=== PATIENT | female | born 1945 | race Caucasian/White ===

== ENCOUNTER 2024-05-11 17:29 | Inpatient (IN) | payer MEDICARE, SELFPAY ==
--- NOTE | ~2024-05-11 | CT_ITS ---
EXAMINATION: CT ABDOMEN AND PELVIS WITH CONTRAST CLINICAL INFORMATION: Bacteremia with hepatic abscess COMPARISON: None TECHNIQUE: Multidetector volumetric imaging was performed from the superior aspect of the liver through the pubic symphysis with intravenous contrast. A total of 85 mL of Omnipaque 350 was utilized for the study. Sagittal and coronal reformatted images were obtained on the technologist's workstation. This CT examination was performed using dose optimization techniques as appropriate, variously including the following: *Automated exposure control *Adjustment of mA and/or kV according to patient size (this includes techniques or standardized protocols for targeted exams where dose is matched to indication/reason for exam; i.e. extremities or head) *Use of iterative reconstruction technique DLP: 628 mGy-cm FINDINGS: LUNG BASES: There is mild cardiomegaly. Mitral valve prosthesis is present. There is bibasilar atelectasis present along with bronchial thickening and traction bronchiectasis at both lung bases, right greater than left . LIVER, GALLBLADDER, AND BILIARY TREE: The liver is enlarged measuring 17.6 cm in greatest cephalocaudad dimension. A few hepatic hypodensities are seen the largest in the left lobe of the liver measuring 1.4 cm. This does not measure water density. No biliary ductal dilatation is present. Status post cholecystectomy. PANCREAS: Unremarkable. SPLEEN: Unremarkable. ADRENAL GLANDS: Unremarkable. KIDNEYS AND URETERS: The kidneys are normal in size, shape, and attenuation. No hydronephrosis, hydroureter, or calculi seen. No perinephric stranding. A benign left upper pole cm Bosniak class I renal cyst is noted which requires no additional imaging or follow up. No solid renal masses are seen. BLADDER: Air is present within the bladder. GASTROINTESTINAL TRACT: There is sigmoid diverticulosis without diverticulitis The small and large bowel are unremarkable. The appendix is unremarkable. ABDOMINAL WALL: No significant hernia is appreciated. LYMPH NODES: No retroperitoneal lymphadenopathy VASCULAR: Calcific atherosclerotic changes are present in the aorta and iliofemoral vessels. There is no evidence of an abdominal aortic aneurysm. PELVIC VISCERA: Retroflexed uterus is present. The endometrium is thickened at 1.4 cm in length and there is a submucosal mass present measuring 0.8 cm. OSSEOUS STRUCTURES: Degenerative changes are present in the spine most marked at L4-L5 CT/CT abdomen pelvis w IV con IMPRESSION: 1. A cause for the patient's bacteremia has not been found. 2. Incidental note made of cardiomegaly, bronchial thickening and traction bronchiectasis at the lung bases, hepatomegaly with a few hepatic hypodensities, cholecystectomy, sigmoid diverticulosis without diverticulitis and a thickened endometrium with submucosal mass. Transabdominal and endovaginal ultrasound is recommended for further evaluation. Fleischner guidelines were followed. Electronically signed by: Darci Galvez MD 05/12/2024 12:46 AM [facility]
--- NOTE | ~2024-05-11 | XR_ITS ---
EXAMINATION: XR CHEST CLINICAL INFORMATION: bacteremia COMPARISON: None available. TECHNIQUE: Frontal view of the chest was obtained. FINDINGS: There is mild cardiomegaly. A TAVR is seen. Some mild interstitial prominence is seen with some mild reticular nodular prominence in the right upper lobe. No focal consolidations. No pleural effusions. XR/XR chest 1V IMPRESSION: Mild cardiomegaly. Mild interstitial prominence with some mild reticular nodular prominence in the right upper lobe. Electronically signed by: Darci Galvez MD 05/12/2024 12:31 AM [facility]
[2024-05-11 18:31] VITALS: BP 119/70; BP 146/88; PULSE 111; PULSE 114; RESP 16; TEMP 36.6; O2SAT 95; O2SAT 96; BMI 24.6
[2024-05-11 19:23] VITALS: BP 128/63; PULSE 89; RESP 18; TEMP 36.9; O2SAT 95
[2024-05-11 19:32] LABS: MANUAL DIFF FLAG NO
[2024-05-11 19:34] LABS: Basophils Absolute Auto 0.1 X10*3/uL (0.0-0.2); Basophils Percent Auto 1.1 % (0-2); Eosinophils Absolute Auto 0.7 X10*3/uL (0.0-0.4); Eosinophils Percent Auto 5.7 % (0-4); Hematocrit 38.7 % (37.0-47.0); Hemoglobin 12.5 g/dl (12.0-16.0); Imm Gran Abs Auto 0.05 X10*3/uL (0.00-0.03); Imm Gran Pct Auto 0.4 % (0.0-0.4); Lymphocytes Percent Auto 16.7 % (20-40); Mean Corpuscular HGB Conc 32.3 g/dl (31.0-35.0); Mean Corpuscular Hemoglobin 29.9 pg (27.0-33.0); Mean Corpuscular Volume 92.6 fL (80.0-98.0); Mean Platelet Volume 10.2 fL (9.4-12.3); Monocytes Absolute Auto 1.2 X10*3/uL (0.1-1.2); Monocytes Percent Auto 9.8 % (2-11); Neutrophils Absolute Auto 7.8 x10*3/uL (2.0-8.3); Neutrophils Percent Auto 66.3 % (45-73); Platelet Count 260 X10*3/uL (160-400); Red Blood Count 4.18 X10*6/uL (4.20-5.50); Red Cell Distribution Width 16.8 % (11.0-16.0); White Blood Count 11.8 X10*3/uL (4.8-10.8)
[2024-05-11 19:50] LABS: Alanine Aminotransferase 34 U/L (0-31); Albumin Level 3.1 g/dL (3.5-5.0); Alkaline Phosphatase 487 U/L (39-117); Anion Gap 13 (12-20); Aspartate Amino Transferase 37 U/L (5-31); Blood Urea Nitrogen 9 mg/dL (9-16); Calcium 9.2 mg/dL (8.4-10.2); Carbon Dioxide 23 mmol/L (22-29); Chloride 106 mmol/L (96-108); Creatinine Clr Calc Pharmacy 56.4; Estimated Glomerular Filt Rate > 60; Glucose Random 87 mg/dL (60-115); Sodium 137 mmol/L (135-145); Total Protein 7.8 g/dL (6.5-8.0)
--- NOTE | 2024-05-11 20:42 | PC.NURSE ---
late entry- pt a&ox4, respirations even and unlabored.pt nadir from [facility], reporting she had labs drawn and they told her she had a possible infection. on arrival pt denies any complaints. 22G placed in right ac, labs obtained and sent.
--- NOTE | 2024-05-11 21:24 | ED_ITS ---
HPI - Recheck/Abnormal Lab/Rx General Chief Complaint: Recheck/Abnormal Lab/Rx Stated Complaint: ABN LABS + CULTURES WBC PER EMS Time Seen by Provider: 05/11/24 21:18 Source: patient and family Mode of arrival: EMS Limitations: no limitations History of Present Illness ED Provider: HPI narrative: Patient's history of recurrent sepsis on Augmentin for liver abscess which was stopped on 05/09 and started on cephalexin yesterday for positive Gram-negative blood culture. In elevated WBC count of 14.9 preliminary blood culture showed Klebsiella pneumoniae group Patient is otherwise feels fine no abdominal pain no nausea no vomiting no fever no chills no urinary complaints Related Data Allergies Allergy/AdvReac Type Severity Reaction Status Date / Time No Known Allergies Allergy Verified 05/11/24 18:35 Review of Systems 2 Review of Systems: Yes all other systems are reviewed and are negative [facility] Past Medical History Medical History (Updated 05/12/24 @ 07:22 by Silvio Do MD) HLD (hyperlipidemia) History of transcatheter aortic valve replacement (TAVR) Dementia HTN (hypertension) CHF (congestive heart failure) COPD (chronic obstructive pulmonary disease) Gram-negative bacteremia Cholecystitis with perforation of gallbladder Liver abscess Atrial fibrillation Surgical History (Updated 05/12/24 @ 01:26 by Janna Rao PA-C) Hx laparoscopic cholecystectomy Social History Social History Patient Tobacco Use Status: Never used Tobacco Smoked in Last 30 Days: No Use of substances other than those prescribed or required for medical reasons: No Advance Directives: Yes Advance Directives on File: Yes Advance Directives Date on File: 05/11/24 Do you have a plan to hurt others: No Plan Nutrition Risks: No Nutritional Risk Physical Exam 2 Vital Signs: Vital Signs: Last Vital Signs Temp 97.9 F 05/12/24 05:17 Pulse 102 H 05/12/24 05:17 Resp 23 H 05/12/24 05:17 BP 137/71 05/12/24 05:17 Pulse Ox 95 05/12/24 05:17 O2 Del Method Room Air 05/12/24 05:17 BMI result Body Mass Index 24.6 Appearance: Alert. Oriented X3. No acute distress. Eyes: No pallor or icterus ENT: Pharynx normal. Oral Mucosa moist Neck: Normal inspection. Neck supple. CVS: Normal heart rate and rhythm. Pulses normal. Respiratory: No respiratory distress. Equal air entry bilateral, no wheezing/rales/rhonchi Abdomen: Soft and nontender. Bowel sounds are present, no mass palpable, no CVA tenderness Skin: Skin warm and dry. Normal skin color. Normal skin turgor. Extremities: No lower extremity edema. No calf tenderness Neuro: Oriented X 3. No motor deficit. No sensory deficit.No cerebellar signs , cranial nerves II-XII intact Medications Administered Discontinued Medications Generic Name Dose Route Start Last Admin Trade Name Freq PRN Reason Stop Dose Admin Ceftriaxone Sodium 2 gm 05/11/24 21:25 05/11/24 22:12 Ceftriaxone Sodium 2 Gm Vial IVPUSH 05/11/24 21:26 2 gm ONCE ONE Administration Iohexol 85 ml 05/12/24 00:28 05/12/24 00:28 Iohexol 350 Mg/Ml 100 Ml Infus..Btl IV 05/12/24 00:29 85 ml ONCE ONE Administration Medical Decision Making Medical Decision Making [facility] Narrative: Patient's Gram-negative bacteremia source not clear possible UTI CT scan of the abdomen negative for acute fluid collection or abscess will start on IV Rocephin Differential Diagnosis Differential Diagnoses: The differential diagnosis associated with the presentation includes Admission/Observation Consideration of admission/observation: Escalation of care including admission/observation considered Consult Healthcare Provider Management of the patient was discussed with: Hospitalist Lab Data [facility] Lab Attestation statement: I reviewed the patient's lab results. 05/12/24 06:30 05/12/24 05:50 Labs: Lab Results 05/11/24 05/11/24 Range/Units 19:28 21:42 WBC 11.8 H (4.8-10.8) X10*3/uL RBC 4.18 L (4.20-5.50) X10*6/uL Hgb 12.5 (12.0-16.0) g/dl Hct 38.7 (37.0-47.0) % MCV 92.6 (80.0-98.0) fL MCH 29.9 (27.0-33.0) pg MCHC 32.3 (31.0-35.0) g/dl RDW 16.8 H (11.0-16.0) % Plt Count 260 (160-400) X10*3/uL MPV 10.2 (9.4-12.3) fL Immature Gran % (Auto) 0.4 (0.0-0.4) % Neut % (Auto) 66.3 (45-73) % Lymph % (Auto) 16.7 L (20-40) % Jenkins % (Auto) 9.8 (2-11) % Eos % (Auto) 5.7 H (0-4) % Baso % (Auto) 1.1 (0-2) % Lymph # (Auto) 2.0 (1.2-4.9) X10*3/uL Jenkins # (Auto) 1.2 (0.1-1.2) X10*3/uL Eos # (Auto) 0.7 H (0.0-0.4) X10*3/uL Baso # (Auto) 0.1 (0.0-0.2) X10*3/uL Abs Immat Gran (auto) 0.05 H (0.00-0.03) X10*3/uL Absolute Neuts (auto) 7.8 (2.0-8.3) x10*3/uL Absolute Nucleated RBC 0.000 (0.0-0.012) X10*3/uL Nucleated RBC % (auto) 0.0 (0.0-0.2) /100WBC Sodium 137 (135-145) mmol/L Potassium 5.0 (3.3-5.1) mmol/L Chloride 106 (96-108) mmol/L Carbon Dioxide 23 (22-29) mmol/L Anion Gap 13 (12-20) BUN 9 (9-16) mg/dL Creatinine 0.72 (0.5-1.4) mg/dL Estim Creat Clear Calc 56.4 Estimated GFR > 60 Random Glucose 87 (60-115) mg/dL Lactic Acid 1.0 (0.5-2.0) mmol/L Calcium 9.2 (8.4-10.2) mg/dL Total Bilirubin 1.0 (0.0-1.0) mg/dL AST 37 H (5-31) U/L ALT 34 H (0-31) U/L Alkaline Phosphatase 487 H (39-117) U/L Total Protein 7.8 (6.5-8.0) g/dL Albumin 3.1 L (3.5-5.0) g/dL Independent Interpretation I performed an independent interpretation of an: CT Scan Radiology Impression Discussion of test interpretation with radiology: I have reviewed the radiologist's reading. Radiologist Impression: CT/CT abdomen pelvis w IV con IMPRESSION: 1. A cause for the patient's bacteremia has not been found. 2. Incidental note made of cardiomegaly, bronchial thickening and traction bronchiectasis at the lung bases, hepatomegaly with a few hepatic hypodensities, cholecystectomy, sigmoid diverticulosis without diverticulitis and a thickened endometrium with submucosal mass. Transabdominal and endovaginal ultrasound is recommended for further evaluation. Fleischner guidelines were followed. Electronically signed by: Darci Galvez MD 05/12/2024 12:46 AM [facility] External Record Review External record reviewed: Inpatient record and Outpatient record Discharge Plan Discharge Clinical Impression: Bacteremia Patient Disposition: Admitted As Inpatient
[2024-05-11] MEDS: cefTRIAXone sodium 2 GM VIAL IVPUSH (22:12)
[2024-05-12] VITALS (7 sets, daily range): BP systolic 118–155; BP diastolic 64–90; PULSE 100–119; RESP 18–23; TEMP 36.4–37; O2SAT 94–99; BMI 24.1
[2024-05-12] MEDS: iohexoL 350 MG/ML 100 ML INFUS..BTL 85 ML IV (00:28)
--- NOTE | 2024-05-12 01:06 | PC.NURSE ---
pt straight cath per order at this time, 500cc dark derik urine voided at this time, pt tolerated well, sample obtained.
--- NOTE | 2024-05-12 01:15 | P.HPHOSP_ITS ---
History of Present Illness Date of Service: 05/12/24 Attending physician on admission: Harry Shane Chief Complaint: abnormal labs Patient is a 78-year-old female with a medical history significant for paroxysmal AFib on Coumadin, hypertension, COPD s/p TAVR 2021, CHF, dementia, HLD, who presented to the ED by EMS due to abnormal labs including a positive blood culture, Klebsiella pneumoniae, at [facility]. Reason for the blood work is unclear. She did have 2 recent admissions at [facility], 1st 04/16/2024 for perforated gallbladder, s/p laparoscopic cholecystectomy, followed by a readmission postop liver abscess on 04/26/24. CT A/P from [facility] at that time revealed 2 small possible abscesses in the inferior right lobe of the liver. Interventional Radiology was unable to drain the fluid collection and she was started on IV Zosyn. On 05/05/2024 the patient was deemed hemodynamically and neurologically stable to be discharged and was sent home with Augmentin for 5 days. The patient has been asymptomatic without any abdominal pain, headache, fever, chills, nausea, vomiting, shortness of breath or chest pain. She also denies any urinary symptoms including dysuria, frequency or new incontinence. The patient is a poor historian per her daughter as she has a new diagnosis of severe dementia. Review of Systems 2 Constitutional: Constitutional: Denies body ache(s), Denies chills, Denies fatigue, Denies fever(s) and Denies headache(s) Eyes: Eyes: Denies change in vision ENT: Denies headache(s), Denies nasal congestion, Denies nasal discharge and Denies sore throat Cardiovascular: Cardiovascular: Denies chest pain, Denies rapid heart rate, Denies lightheadedness and Denies dyspnea Respiratory: Respiratory: Denies chest congestion, Denies cough, Denies dyspnea and Denies wheezing Gastrointestinal: Gastrointestinal: Denies diarrhea, Denies nausea and Denies vomiting Genitourinary: Genitourinary: Denies dysuria, Denies urinary incontinence and Denies urinary urgency Musculoskeletal: Musculoskeletal: Denies muscle cramps Integumentary/Breasts: Skin/Breast: Denies rash Neurologic: Denies headache(s) and Denies memory loss Psychiatric: Psychiatric: Denies memory loss Endocrine: Endocrine: Denies fatigue Hematologic/Lymphatic: Hematologic/Lymphatic: Denies easy bleeding Allergic/Immunologic: Allergic/Immunologic: Denies wheezing PMFSH Medical History (Updated 05/12/24 @ 01:28 by Janna Rao PA-C) HLD (hyperlipidemia) History of transcatheter aortic valve replacement (TAVR) Dementia HTN (hypertension) CHF (congestive heart failure) COPD (chronic obstructive pulmonary disease) Gram-negative bacteremia Cholecystitis with perforation of gallbladder Liver abscess Atrial fibrillation Surgical History (Updated 05/12/24 @ 01:26 by Janna Rao PA-C) Hx laparoscopic cholecystectomy Social History Smoked in Last 30 Days: No Use of substances other than those prescribed or required for medical reasons: No Advance Directives: Yes Advance Directives on File: Yes Advance Directives Date on File: 05/11/24 Do you have a plan to hurt others: No Plan Narrative: no smoking, etoh or drug use. living at [facility] but states she was going to be placed somewhere else Meds Allergies Allergy/AdvReac Type Severity Reaction Status Date / Time No Known Allergies Allergy Verified 05/11/24 18:35 Active Medications: Current Medications Acetaminophen (Acetaminophen 325 Mg Tablet) 650 mg PO Q6H PRN PRN Reason: Pain, Mild (Pain Scale 1-3), fever or headache Calcium Carbonate (Calcium Carbonate 750 Mg Tab.Chew) 750 mg PO Q4H PRN PRN Reason: Heartburn Magnesium Hydroxide (Milk Of Magnesia 30 Ml Oral.Susp) 30 ml PO DAILY PRN PRN Reason: Constipation Melatonin (Melatonin 3 Mg Tablet) 6 mg PO BEDTIME PRN PRN Reason: Insomnia Ondansetron HCl (Ondansetron Hcl 4 Mg/2 Ml Vial) 4 mg IVPUSH Q8H PRN PRN Reason: Nausea and Vomiting Sodium Chloride (0.9 % Sodium Chloride Flush 3 Ml Syringe) 3 ml IVFLUSH QSHIFT [facility] Physical Exam 2 Vital Signs and Narrative: Vital Signs: Last Vital Signs Temp 98.4 F 05/11/24 19:23 Pulse 89 05/11/24 19:23 Resp 18 05/11/24 19:23 BP 128/63 05/11/24 19:23 Pulse Ox 95 05/11/24 19:23 O2 Del Method Room Air 05/11/24 19:23 BMI result Body Mass Index 24.6 General: AOx3, no acute distress, some confusion, difficult historian Resp: CTA bilaterally CVS: S1, S2, RRR GI: +BS, NT, no distention Skin: Warm, dry. chronic venous stasis Neuro: Cranial nerves II-XII grossly intact bilaterally. Motor grossly intact bilaterally Extremities: No LE edema Psych: Appropriate affect, some confusion Results Labs 05/11/24 19:28 05/11/24 19:28 Labs: Laboratory Results - last 24 hr 05/11/24 05/11/24 19:28 21:42 MCV 92.6 MCH 29.9 MCHC 32.3 RDW 16.8 H Plt Count 260 MPV 10.2 Immature Gran % (Auto) 0.4 Neut % (Auto) 66.3 Lymph % (Auto) 16.7 L [place] % (Auto) 9.8 Eos % (Auto) 5.7 H Baso % (Auto) 1.1 Lymph # (Auto) 2.0 [place] # (Auto) 1.2 Eos # (Auto) 0.7 H Baso # (Auto) 0.1 Abs Immat Gran (auto) 0.05 H Absolute Neuts (auto) 7.8 Absolute Nucleated RBC 0.000 Nucleated RBC % (auto) 0.0 Anion Gap 13 Estim Creat Clear Calc 56.4 Estimated GFR > 60 Random Glucose 87 Lactic Acid 1.0 Calcium 9.2 Total Bilirubin 1.0 AST 37 H ALT 34 H Alkaline Phosphatase 487 H Total Protein 7.8 Albumin 3.1 L Imaging Radiologist's Impressions: Impressions Abdomen/Pelvis CT 05/12/24 00:04 IMPRESSION: 1. A cause for the patient's bacteremia has not been found. 2. Incidental note made of cardiomegaly, bronchial thickening and traction bronchiectasis at the lung bases, hepatomegaly with a few hepatic hypodensities, cholecystectomy, sigmoid diverticulosis without diverticulitis and a thickened endometrium with submucosal mass. Transabdominal and endovaginal ultrasound is recommended for further evaluation. Fleischner guidelines were followed. Electronically signed by: Darci Galvez MD 05/12/2024 12:46 AM [facility] Chest X-Ray 05/12/24 00:14 IMPRESSION: Mild cardiomegaly. Mild interstitial prominence with some mild reticular nodular prominence in the right upper lobe. Electronically signed by: Darci Galvez MD 05/12/2024 12:31 AM [facility] Assessment and Plan (1) Sepsis: Status: Acute (2) Bacteremia: Status: Acute (3) UTI (urinary tract infection): Status: Acute Plan Patient is a 78-year-old female with a medical history significant for paroxysmal AFib on Coumadin, hypertension, COPD s/p TAVR 2021, CHF, dementia, HLD, who presented to the ED by EMS due to abnormal labs including a positive blood culture, Klebsiella pneumoniae, at [facility]. Reason for the blood work is unclear. She did have 2 recent admissions at [facility], 1st 04/16/2024 for perforated gallbladder, s/p laparoscopic cholecystectomy, followed by a readmission postop liver abscess on 04/26/24. CT A/P from [facility] at that time revealed 2 small possible abscesses in the inferior right lobe of the liver. Interventional Radiology was unable to drain the fluid collection and she was started on IV Zosyn. On 05/05/2024 the patient was deemed hemodynamically and neurologically stable to be discharged and was sent home with Augmentin for 5 days. Blood cultures x2 at [facility] were negative. sepsis with klebsiella pneumoniae bacteremia likely secondary to UTI - A/P CT negative for source of bacteremia - CXR negative - UA +, culture pending - CBC with mild leukocytosis 11.8, pt tachy on arrival, no fever, lactic acid normal, blood cultures x2 pending - given 1 dose ceftriaxone in ED, will continue - puree diet per records, thin liquids ok - monitor CBC and CMP elevated LFTs due to above hx - stable LFTs from [facility] records - no liver abscess on CT - monitor CMP paroxysmal a fib - PT/INR pending, check daily - continue coumadin, metoprolol and digoxin HTN - continue metoprolol, HTN CHF - continue lasix HLD - hold statin with elevated LFTs DNR/DNI - reviewed with pt's HCP [facility] VTE prophy: coumadin Pt with sepsis with Klebsiella pneumonia bacteremia likely secondary to UTI, requiring admission for at least 2 midnights stay for IV antibiotics. Quality Stroke Does the patient have a stroke diagnosis?: No VTE Prior VTE?: No VTE Risk Level:: Medical - moderate - high VTE Device Contraindication: Treatment Not Indicated VTE Drug Contraindication: N/A - Med Ordered
[2024-05-12 01:23] LABS: Appearance Urine Cloudy; Color Urine Yellow; Glucose Urine UA Negative (Negative); Leukocyte Esterase Urine Large (3+) (Negative); Nitrite Urine Negative (Negative); Specific Gravity - Urine >= 1.030 (1.005-1.025); UMIC TRIGGER UACC YES; Urine Blood Trace (Negative); Urine Ketones Negative (Negative); Urine Protein Trace mg/dL (Neg-Trace)
[2024-05-12 01:47] LABS: Bacteria Urine None Seen (None Seen); RBC Urine >20 /HPF (0-2); Squamous Epithelial Cell Urine 0-2 /HPF (0-2); UACC Culture Trigger YES; WBC Urine >50 /HPF (0-5)
[2024-05-12 02:31] LABS: INTERNATIONAL NORM RATIO 1.5 (0.9-1.1); Prothrombin Time 17.4 SEC (10.9-12.4)
[2024-05-12 02:34] LABS: Partial Thromboplastin Time 29.7 SEC (26.0-36.8)
[2024-05-12 06:30] LABS: Alanine Aminotransferase 27 U/L (0-31); Albumin Level 2.6 g/dL (3.5-5.0); Alkaline Phosphatase 399 U/L (39-117); Anion Gap 14 (12-20); Aspartate Amino Transferase 22 U/L (5-31); Bilirubin Total 0.6 mg/dL (0.0-1.0); Blood Urea Nitrogen 10 mg/dL (9-16); Calcium 8.6 mg/dL (8.4-10.2); Carbon Dioxide 20 mmol/L (22-29); Chloride 109 mmol/L (96-108); Creatinine Clr Calc Pharmacy 60.7; Estimated Glomerular Filt Rate > 60; Glucose Random 78 mg/dL (60-115); Potassium 4.3 mmol/L (3.3-5.1); Sodium 139 mmol/L (135-145); Total Protein 6.2 g/dL (6.5-8.0)
[2024-05-12 06:49] LABS: Hematocrit 37.8 % (37.0-47.0); Hemoglobin 12.1 g/dl (12.0-16.0); Mean Corpuscular Hemoglobin 29.6 pg (27.0-33.0); Mean Corpuscular Volume 92.4 fL (80.0-98.0); Mean Platelet Volume 10.8 fL (9.4-12.3); Platelet Count 265 X10*3/uL (160-400); Red Blood Count 4.09 X10*6/uL (4.20-5.50); Red Cell Distribution Width 16.5 % (11.0-16.0); White Blood Count 11.5 X10*3/uL (4.8-10.8)
--- NOTE | 2024-05-12 08:17 | PC.NURSE ---
report given to MAGDY Schmitz in overflow at this time.
--- NOTE | 2024-05-12 10:29 | PHA.MEDREC ---
Addendum entered by Diana Jimenez [facility] 05/12/24 11:05: Jackelyn RN from [facility] called back and confirmed patient is on 2 mg daily of Warfarin, the 2.5 mg was discontinued Original Note: Pharmacy Consult ? Medication Reconciliation Pharmacy has completed the medication reconciliation. Used list from [facility]. Only thing is the warfarin is confusing, there are two active orders one for 2.5 mg and another for 2 mg, can not decifer if patient is to be on both or just one of them or maybe even alternating? Called snf, was on hold for 10 minutes, spoke to Mariza who will have the RN call me when she is available.
[2024-05-12] MEDS: buPROPion HCl XL 150 MG TAB.ER.24H PO (14:47)
[2024-05-12] MEDS: 0.9 % Sodium Chloride Flush 3 ML SYRINGE IVFLUSH ×2 (17:47→20:03)
[2024-05-12] MEDS: Digoxin 0.125 MG TABLET PO (17:48)
[2024-05-12] MEDS: Warfarin Sodium 2 MG TABLET PO (17:48)
[2024-05-12] MEDS: Calcium + Vitamin D 250 MG TABLET 500 MG PO (20:02)
[2024-05-12] MEDS: Atorvastatin Calcium 10 MG TABLET PO (20:02)
[2024-05-12] MEDS: Melatonin 3 MG TABLET PO (20:03)
[2024-05-12] MEDS: Acetaminophen 325 MG TABLET 650 MG PO (20:03)
[2024-05-12] MEDS: cefTRIAXone sodium 2 GM VIAL IVPUSH (20:03)
[2024-05-13] VITALS (7 sets, daily range): BP systolic 105–159; BP diastolic 58–92; PULSE 93–108; RESP 16–18; TEMP 36.4–36.7; O2SAT 97–98; BMI 24.1
--- NOTE | 2024-05-13 07:14 | PM.EVENT ---
Event Note Date of Service: 05/12/24 Event Note: Patient is a 78-year-old female with a medical history significant for paroxysmal AFib on Coumadin, hypertension, COPD s/p TAVR 2021, CHF, dementia, HLD, who presented to the ED by EMS due to abnormal labs including a positive blood culture, Klebsiella pneumoniae, at [facility]. Reason for the blood work is unclear. She did have 2 recent admissions at [facility], 1st 04/16/2024 for perforated gallbladder, s/p laparoscopic cholecystectomy, followed by a readmission postop liver abscess on 04/26/24. CT A/P from [facility] at that time revealed 2 small possible abscesses in the inferior right lobe of the liver. Interventional Radiology was unable to drain the fluid collection and she was started on IV Zosyn. On 05/05/2024 the patient was deemed hemodynamically and neurologically stable to be discharged and was sent home with Augmentin for 5 days. Blood cultures x2 at [facility] were negative. sepsis with klebsiella pneumoniae bacteremia likely secondary to UTI - A/P CT negative for source of bacteremia - CXR negative - UA +, culture pending - CBC with mild leukocytosis 11.8, pt tachy on arrival, no fever, lactic acid normal, blood cultures x2 pending - given 1 dose ceftriaxone in ED, will continue - puree diet per records, thin liquids ok - monitor CBC and CMP elevated LFTs due to above hx - stable LFTs from [facility] records - no liver abscess on CT - monitor CMP paroxysmal a fib - PT/INR pending, check daily - continue coumadin, metoprolol and digoxin HTN - continue metoprolol, HTN CHF - continue lasix HLD - hold statin with elevated LFTs DNR/DNI - reviewed with pt's HCP [facility] AZEVEDO prophy: coumadin Pt with sepsis with Klebsiella pneumonia bacteremia likely secondary to UTI, requiring admission for at least 2 midnights stay for IV antibiotics. Time Spent With Patient Time: Total time managing care of this patient today ____ minutes.
[2024-05-13] MEDS: lisinopriL 10 MG TABLET PO (07:35)
[2024-05-13] MEDS: Aspirin Enteric Coated 81 MG TABLET.DR PO (07:35)
[2024-05-13] MEDS: buPROPion HCl XL 150 MG TAB.ER.24H PO (07:36)
[2024-05-13] MEDS: Metoprolol Succinate ER 25 MG TAB.ER.24H PO (07:36)
[2024-05-13] MEDS: 0.9 % Sodium Chloride Flush 3 ML SYRINGE IVFLUSH ×2 (07:36→13:45)
[2024-05-13] MEDS: Calcium + Vitamin D 250 MG TABLET 500 MG PO (07:36)
--- NOTE | 2024-05-13 09:37 | MHC.CM.PN ---
CM ASSESSMENT COMPLETED W/ PATIENT AT BEDSIDE AND DTR/HCP RYAN VIA TELEPHONE. IMM DELIVERED. PATIENT W/ DX DEMENTIA, BUT ANSWERING MOST QUESTIONS APPROPRIATELY. PATIENT LIVES IN HER OWN HOME, DTR LIVES W/ HER. CAME TO [facility] FROM [facility] @ [facility]. DTR REPORTS PATIENT WAS INDEPENDENT UNTIL ~4 MOS AGO. HAS HAD SEVERAL STAYS AT [facility] IN THE LAST 4 MONTHS INCLUDING [place], [place], AND [facility]. NOW AMBULATING W/ CANE, W/C FOR LONG DISTANCES. AT HOME DTR DOES ALL CLEANING, COOKING, ETC. IS ABLE TO MINIMALLY ASSIST PT W/ ADLS, DTR ALSO REQUIRES ASSISTANCE AND HAS HER OWN SKILLED HELPER. PCP BEATRICE PEREZ NO @ [facility] HCP/MOLST ON FILE AND VERIFIED. DP: RETURN TO [facility] @ [facility]. DAUGHTER IS WORKING ON [employer] FOR EVENTUAL LTC AND UNDERSTANDS THIS WILL NOT HAPPEN FROM [facility]. CM WILL CONTINUE TO FOLLOW.
--- NOTE | 2024-05-13 09:45 | P.PNIM_ITS ---
Subjective Subjective Date of Service: 05/13/24 Review of Systems Follow up bacteremia baseline confusion so difficult to get hx Physical Exam 2 Vital Signs: Vital Signs: Last Vital Signs Temp 98.0 F 05/13/24 07:29 Pulse 93 05/13/24 07:29 Resp 16 05/13/24 07:29 BP 159/92 H 05/13/24 07:29 Pulse Ox 97 05/13/24 07:29 O2 Del Method Room Air 05/13/24 07:29 BMI result Body Mass Index 24.1 Appearing in no acute distress lung sounds are clear to auscultation heart regular rate rhythm, clear S1, S2 positive bowel sounds, abdomen is soft, nontender neuro patient is alert x3, no focal deficits Objective Data Active Medications Acetaminophen (Acetaminophen 325 Mg Tablet) 650 mg PO Q6H PRN PRN Reason: Pain, Mild (Pain Scale 1-3), fever or headache Last Admin: 05/12/24 20:03 Dose: 650 mg Documented By: JOHAN Aspirin (Aspirin Enteric Coated 81 Mg Tablet.Dr) 81 mg PO DAILY [facility] Last Admin: 05/13/24 07:35 Dose: 81 mg Documented By: OMID Atorvastatin Calcium (Atorvastatin Calcium 10 Mg Tablet) 10 mg PO BEDTIME [facility] Last Admin: 05/12/24 20:02 Dose: 10 mg Documented By: JOHAN Bupropion HCl (Bupropion Hcl Xl 150 Mg Tab.Er.24h) 150 mg PO DAILY [facility] Last Admin: 05/13/24 07:36 Dose: 150 mg Documented By: OMID Calcium Carbonate (Calcium Carbonate 750 Mg Tab.Chew) 750 mg PO Q4H PRN PRN Reason: Heartburn Calcium Carbonate/Cholecalciferol (Calcium + Vitamin D 250 Mg Tablet) 500 mg PO DAILY [facility] Last Admin: 05/13/24 07:36 Dose: 500 mg Documented By: OMID Ceftriaxone Sodium (Ceftriaxone Sodium 2 Gm Vial) 2 gm IVPUSH Q24H [facility] Last Admin: 05/12/24 20:03 Dose: 2 gm Documented By: JOHAN Digoxin (Digoxin 0.125 Mg Tablet) 0.125 mg PO DAILY@1700 MICHELLE; Protocol Last Admin: 05/12/24 17:48 Dose: 0.125 mg Documented By: BRENDA Furosemide (Furosemide 20 Mg Tablet) 20 mg PO DAILY@1400 [facility]; Protocol Haloperidol Lactate (Haloperidol Lactate 5 Mg/Ml Vial) 3 mg IM ONCE PRN PRN Reason: agitation Lisinopril (Lisinopril 10 Mg Tablet) 10 mg PO DAILY [facility]; Protocol Last Admin: 05/13/24 07:35 Dose: 10 mg Documented By: OMID Magnesium Hydroxide (Milk Of Magnesia 30 Ml Oral.Susp) 30 ml PO DAILY PRN PRN Reason: Constipation Melatonin (Melatonin 3 Mg Tablet) 6 mg PO BEDTIME PRN PRN Reason: Insomnia Melatonin (Melatonin 3 Mg Tablet) 3 mg PO BEDTIME [facility] Last Admin: 05/12/24 20:03 Dose: 3 mg Documented By: TAJRISSherine Metoprolol Succinate (Metoprolol Succinate Er 25 Mg Tab.Er.24h) 25 mg PO DAILY [facility]; Protocol Last Admin: 05/13/24 07:36 Dose: 25 mg Documented By: OMID Sodium Chloride (0.9 % Sodium Chloride Flush 3 Ml Syringe) 3 ml IVFLUSH QSHIFT [facility] Last Admin: 05/13/24 07:36 Dose: 3 ml Documented By: OMID Warfarin Sodium (Warfarin Sodium 2 Mg Tablet) 2 mg PO DAILY@1800 [facility] Last Admin: 05/12/24 17:48 Dose: 2 mg Documented By: BRENDA Labs 05/13/24 10:56 05/13/24 10:56 Microbiology Microbiology Results: Microbiology 05/11/24 22:04 Blood Culture - Preliminary Blood - Venous No growth after 24 hours. 05/11/24 21:42 Blood Culture - Preliminary Blood - Venous No growth after 24 hours. Assessment and Plan (1) UTI (urinary tract infection): Status: Acute Plan 78-year-old female with a medical history significant for paroxysmal AFib on Coumadin, hypertension, COPD s/p TAVR 2021, CHF, dementia, HLD, who presented to the ED by EMS due to abnormal labs including a positive blood culture, Klebsiella pneumoniae, at [facility]. Reason for the blood work is unclear. She did have 2 recent admissions at [facility], 1st 04/16/2024 for perforated gallbladder, s/p laparoscopic cholecystectomy, followed by a readmission postop liver abscess on 04/26/24. CT A/P from [facility] at that time revealed 2 small possible abscesses in the inferior right lobe of the liver. Interventional Radiology was unable to drain the fluid collection and she was started on IV Zosyn. On 05/05/2024 the patient was deemed hemodynamically and neurologically stable to be discharged and was sent home with Augmentin for 5 days. Blood cultures x2 at [facility] were negative. Sepsis with klebsiella pneumoniae bacteremia likely secondary to UTI A/P CT negative for source of bacteremia CXR negative puree diet per records, thin liquids ok monitor CBC and CMP UA cx + for yeast, blood cx negative continue Rocephin elevated LFTs due to above hx stable LFTs from [facility] records no liver abscess on CT monitor CMP paroxysmal a fib PT/INR pending, check daily continue coumadin, metoprolol and digoxin HTN continue metoprolol, HTN CHF continue lasix HLD hold statin with elevated LFTs DNR/DNI - reviewed with pt's HCP [place] VTE prophy: coumadin Pt with sepsis with Klebsiella pneumonia bacteremia likely secondary to UTI, requiring admission for at least 2 midnights stay for IV antibiotics. Quality Stroke Does the patient have a stroke diagnosis?: No VTE Prior VTE?: No VTE Risk Level:: Medical - moderate - high VTE Device Contraindication: Treatment Not Indicated VTE Drug Contraindication: N/A - Med Ordered
[2024-05-13 11:07] LABS: Hematocrit 36.3 % (37.0-47.0); Hemoglobin 11.6 g/dl (12.0-16.0); Mean Corpuscular Hemoglobin 29.5 pg (27.0-33.0); Mean Corpuscular Volume 92.4 fL (80.0-98.0); Mean Platelet Volume 10.4 fL (9.4-12.3); Platelet Count 295 X10*3/uL (160-400); Red Blood Count 3.93 X10*6/uL (4.20-5.50); Red Cell Distribution Width 16.1 % (11.0-16.0); White Blood Count 10.9 X10*3/uL (4.8-10.8)
[2024-05-13 11:16] LABS: INTERNATIONAL NORM RATIO 1.4 (0.9-1.1); Prothrombin Time 16.7 SEC (10.9-12.4)
[2024-05-13 11:23] LABS: Alanine Aminotransferase 22 U/L (0-31); Albumin Level 2.9 g/dL (3.5-5.0); Alkaline Phosphatase 353 U/L (39-117); Anion Gap 10 (12-20); Aspartate Amino Transferase 34 U/L (5-31); Bilirubin Total 0.5 mg/dL (0.0-1.0); Blood Urea Nitrogen 8 mg/dL (9-16); Calcium 8.9 mg/dL (8.4-10.2); Carbon Dioxide 25 mmol/L (22-29); Chloride 106 mmol/L (96-108); Creatinine Clr Calc Pharmacy 67.7; Estimated Glomerular Filt Rate > 60; Glucose Random 126 mg/dL (60-115); Potassium 3.5 mmol/L (3.3-5.1); Sodium 137 mmol/L (135-145); Total Protein 6.9 g/dL (6.5-8.0)
[2024-05-13] MEDS: Furosemide 20 MG TABLET PO (13:45)
--- NOTE | 2024-05-13 14:41 | P.CDIM_ITS ---
PROVIDER RESPONSE TEXT: To clarify, the appropriate diagnosis supported by the clinical indicators: Diastolic: chronic QUERY TEXT: PHYSICIAN'S DOCUMENTATION REQUEST Date of Query: 05/13/2024 12:39 PM EST Patient Name: Fei Joshua Admit Date: 05/12/2024 Dear Kaela Parrish COMPUTER FORENSICS ANALYST, A review of the medical record indicates additional documentation may be needed. Please review below and update the documentation accordingly. Clinical Indicators: Progress notes within the Plan: CHF, continue Lasix Home medication: Furosemide 40 mg PO daily Please provide further specificity regarding the most likely type and acuity of CHF you are evaluatin g, treating, or monitoring, if known Systolic Please specify if Acute, Chronic, or Acute on chronic, or Unable to determine Diastolic Please specify if Acute, Chronic, or Acute on chronic, or Unable to determine Combined Systolic/Diastolic Please specify if Acute, Chronic, or Acute on chronic, or Unable to determine Other (explain) Clinically unable to determine (explain) Thank you, Judi Cuenca, CCS, CDIS Use of terms such as suspected, likely, concern for, or probable (associated with a specific diagnosi s that is being evaluated, monitored, or treated as if it exists) are acceptable and can be coded in the inpatient se tting, when documented at the time of discharge. Please use your independent medical judgment in providing your response. THIS QUERY IS PART OF THE PERMANENT MEDICAL RECORD
--- NOTE | 2024-05-13 15:54 | MHC.CLN ---
NUTRITION CONSULT FOR REPORTED 26# WEIGHT LOSS X APPROX ONE MONTH. DIET=PUREE. PATIENT HOSPITALIZED TWICE IN PAST MONTH WITH PERFORATED GALLBLADDER AND LIVER ABSCESS. DISLIKES SUPPLEMENTS. FOLLOW FOR PO INTAKE AND DIET CONSISTENCY. SEE CLINICAL NUTRITION ASSESSMENT 05/13/24.
[2024-05-13] MEDS: HaloperidoL 0.5 MG TABLET PO (17:32)
[2024-05-13] MEDS: Digoxin 0.125 MG TABLET PO (17:32)
[2024-05-13] MEDS: Warfarin Sodium 2 MG TABLET PO (17:32)
[2024-05-13] MEDS: Atorvastatin Calcium 10 MG TABLET PO (19:41)
[2024-05-13] MEDS: Melatonin 3 MG TABLET PO (19:41)
[2024-05-13] MEDS: cefTRIAXone sodium 2 GM VIAL IVPUSH (19:41)
[2024-05-14 03:24] VITALS: BP 133/73; PULSE 92; RESP 16; TEMP 36.2; O2SAT 95
[2024-05-14 07:25] VITALS: BP 113/64; PULSE 94; RESP 16; TEMP 36; O2SAT 97
[2024-05-14] MEDS: Aspirin Enteric Coated 81 MG TABLET.DR PO (08:30)
[2024-05-14] MEDS: buPROPion HCl XL 150 MG TAB.ER.24H PO (08:30)
[2024-05-14] MEDS: lisinopriL 10 MG TABLET PO (08:30)
[2024-05-14] MEDS: Calcium + Vitamin D 250 MG TABLET 500 MG PO (08:30)
[2024-05-14] MEDS: Metoprolol Succinate ER 25 MG TAB.ER.24H PO (08:30)
--- NOTE | 2024-05-14 09:27 | MHC.CM.PN ---
Patient medically cleared for dc back to [facility]. BLS transport scheduled for 1030am. Patient, daughter/HCP, facility and RN aware.
--- NOTE | 2024-05-14 10:03 | PC.NURSE ---
pt yelling this AM for her daughter. pt was re-oriented over time. afterwards pt was calm and cooperative. facility was given report.
--- NOTE | 2024-05-14 10:09 | PM.DS ---
DS: Providers Provider Date of Service: 05/14/24 Date of admission: 05/12/24 01:00 Primary care physician: Marline Latham NP Consults: 05/13/24 09:41 Consult to Infectious Diseases Routine Consulting Provider: [facility] Reason for consultation: Klebsiella pneumonia bacteremia DS: Diagnosis Discharge Diagnosis (1) UTI (urinary tract infection): Status: Acute DS: Summary Hospital Course Hospital Course: History and physical as per admitting provider. Patient is a 78-year-old female with a medical history significant for paroxysmal AFib on Coumadin, hypertension, COPD s/p TAVR 2021, CHF, dementia, HLD, who presented to the ED by EMS due to abnormal labs including a positive blood culture, Klebsiella pneumoniae, at [facility]. Reason for the blood work is unclear. She did have 2 recent admissions at [facility], 1st 04/16/2024 for perforated gallbladder, s/p laparoscopic cholecystectomy, followed by a readmission postop liver abscess on 04/26/24. CT A/P from [facility] at that time revealed 2 small possible abscesses in the inferior right lobe of the liver. Interventional Radiology was unable to drain the fluid collection and she was started on IV Zosyn. On 05/05/2024 the patient was deemed hemodynamically and neurologically stable to be discharged and was sent home with Augmentin for 5 days. The patient has been asymptomatic without any abdominal pain, headache, fever, chills, nausea, vomiting, shortness of breath or chest pain. She also denies any urinary symptoms including dysuria, frequency or new incontinence. The patient is a poor historian per her daughter as she has a new diagnosis of severe dementia. 78-year-old woman treated for Sepsis with klebsiella pneumoniae bacteremia likely secondary to UTI. She was diagnosed at [facility] and cultures were collected on 05/10/2024. She had presented to the ED with abnormal blood work. She was started on IV Rocephin and plan is to continue cefuroxime for 14 days. No obvious source of the bacteremia likely secondary to UTI. She was noted to have elevated LFTs that have been stable from [facility] records with no liver abscess noted on CT. She can follow up with her primary care provider for this. She does have a history of paroxysmal atrial fibrillation. Her INRs have been on the lower side. Her warfarin should be increased to 3 mg x 2 days then back to 2 mg and monitor INR. Continue metoprolol and digoxin. HTN. Stable blood pressure. Continue metoprolol CHF, unspecified continue lasix HLD continue statin Time Attestation Discharge Coordination Time (in mins): 40 Quality: Safe Use of Opioids Does Pt have an Active Cancer Diagnosis on the Problem List?: No Quality: Stroke Does the patient have a stroke diagnosis?: No Physical Exam Vital Signs: Vital Signs: Last Vital Signs Temp 96.8 F 05/14/24 07:25 Pulse 94 05/14/24 07:25 Resp 16 05/14/24 07:25 BP 113/64 05/14/24 07:25 Pulse Ox 97 05/14/24 07:25 O2 Del Method Room Air 05/14/24 07:25 BMI result Body Mass Index 24.1 Appearing in no acute distress head is normocephalic atraumatic eyes pupils are PERRLA sclera is anicteric mouth throat mucous membranes are intact and moist neck is supple no lymphadenopathy, no JVD noted lung sounds are clear to auscultation heart regular rate rhythm, clear S1, S2 positive bowel sounds, abdomen is soft, nontender neuro patient is alert, chronically confused DS: Data Data Completed and Pending Labs on day of discharge: Laboratory Results - last 24 hr 05/13/24 05/13/24 05/13/24 10:56 10:56 10:56 WBC 10.9 H RBC 3.93 L Hgb 11.6 L Hct 36.3 L MCV 92.4 MCH 29.5 MCHC 32.0 RDW 16.1 H Plt Count 295 MPV 10.4 Absolute Nucleated RBC 0.000 Nucleated RBC % (auto) 0.0 PT 16.7 H Cancelled INR 1.4 H Cancelled Sodium 137 Potassium 3.5 Chloride 106 Carbon Dioxide 25 Anion Gap 10 L BUN 8 L Creatinine 0.60 Estim Creat Clear Calc 67.7 Estimated GFR > 60 Random Glucose 126 H Calcium 8.9 Total Bilirubin 0.5 AST 34 H ALT 22 Alkaline Phosphatase 353 H Total Protein 6.9 Albumin 2.9 L Preliminary micro results at discharge 05/11/24 22:04 Blood Culture - Preliminary Blood - Venous No growth after 48 hours. 05/11/24 21:42 Blood Culture - Preliminary Blood - Venous No growth after 48 hours. Discharge Plan Discharge Anticipated Discharge Date/Time: 05/14/24 09:49 Patient Disposition: Xfer SNF Discharge Diagnosis: Sepsis Klebsiella pneumonia bacteremia Elevated LFT Referrals: Zuleyma Grajeda [Outside] - 1 Day (resume short term rehab) Dolores Thorpe MD [Physician] - 1 Week Discharge Medications: New cefuroxime axetil 500 mg tablet 500 mg PO BID Qty: 28 0RF Continued furosemide 40 mg Tablet 40 mg PO DAILY atorvastatin 10 mg Tablet 10 mg PO BEDTIME ondansetron HCl 4 mg Tablet 4 mg PO Q6H PRN (Reason: NAUSEA/VOMITING) alendronate 70 mg Tablet 70 mg PO SA warfarin 2.5 mg tablet 2 mg PO DAILY@1800 melatonin 3 mg Tablet 3 mg PO BEDTIME calcium carbonate-vitamin D3 600 mg-5 mcg (200 unit) Tablet 1 tab PO BID aspirin 81 mg Tablet,Delayed Release (Dr/Ec) 81 mg PO DAILY lisinopril 10 mg Tablet 10 mg PO DAILY digoxin 125 mcg (0.125 mg) Tablet 125 mcg PO DAILY@1700 furosemide 20 mg Tablet 20 mg PO DAILY@1400 metoprolol succinate 25 mg Tablet Extended Release 24 Hr 25 mg PO DAILY Acidophilus Capsule 1,000 mmu cells PO DAILY bupropion HCl 150 mg Tablet Extended Release 24 Hr 150 mg PO QAM Discontinued cephalexin 500 mg Capsule 500 mg PO BID Rx Instructions: UNTIL 05/19/2024 Discharge Orders: Discharge Order (Routine); Ordered 05/14/24 Ordered By: Kaela Parrish Diet: Advance to usual diet Activity on Discharge: As tolerated Stand Alone Forms: Patient Portal Discharge page Print Language: Moldovan Care Plan Goals: Transfer to short-term rehab for physical therapy Health Concerns: Sepsis Klebsiella pneumonia bacteremia Elevated LFT Plan of Treatment: Follow up with primary care provider as needed Take all medications as prescribed Assessment: See discharge summary
--- NOTE | 2024-05-14 23:32 | P.CNID_ITS ---
History of Present Illness Data of Consult Service Date: 05/13/24 Requesting physician: Kaela Parrish Primary Care Provider: Marline Latham NP HPI Reason for consult: Klebsiella pneumonia bacteremia She presents with weakness for a day/ She has Klesiella pneumonia bacteremia. SHe has had prior liver abscess. Studies now are unremarkable. Review of Systems 2 Review of Systems: Yes all other systems are reviewed and are negative PMFSH Past Medical History Medical History HLD (hyperlipidemia) History of transcatheter aortic valve replacement (TAVR) Dementia HTN (hypertension) CHF (congestive heart failure) COPD (chronic obstructive pulmonary disease) Gram-negative bacteremia Cholecystitis with perforation of gallbladder Liver abscess Atrial fibrillation Family History Family history: reviewed and not pertinent Surgical History Surgical History Hx laparoscopic cholecystectomy Social History Social History Household Members: Other Housing: [facility] Do you presently have visiting nurse or other home services: No Patient Tobacco Use Status: Never used Tobacco Advance Directives Date on File: 05/11/24 service: No Meds Allergies Allergy/AdvReac Type Severity Reaction Status Date / Time No Known Allergies Allergy Verified 05/11/24 18:35 Home Medications ?Medication ?Instructions ?Recorded ?Confirmed ?Last Taken ?Type Lactobacillus acidophilus 1,000 mmu cells PO DAILY 05/12/24 05/12/24 Unknown History (Acidophilus capsule) alendronate 70 mg tablet 70 mg PO SA 05/12/24 05/12/24 05/11/24 History aspirin 81 mg tablet,delayed 81 mg PO DAILY 05/12/24 05/12/24 Unknown History release atorvastatin 10 mg tablet 10 mg PO BEDTIME 05/12/24 05/12/24 Unknown History bupropion HCl 150 mg 24 hr tablet, 150 mg PO QAM 05/12/24 05/12/24 Unknown History extended release calcium 600 mg (as 1 tab PO BID 05/12/24 05/12/24 Unknown History carbonate)-vitamin D3 5 mcg (200 unit) tablet digoxin 125 mcg (0.125 mg) tablet 125 mcg PO DAILY@1700 05/12/24 05/12/24 Unknown History furosemide 20 mg tablet 20 mg PO DAILY@1400 05/12/24 05/12/24 Unknown History furosemide 40 mg tablet 40 mg PO DAILY 05/12/24 05/12/24 Unknown History lisinopril 10 mg tablet 10 mg PO DAILY 05/12/24 05/12/24 Unknown History melatonin 3 mg tablet 3 mg PO BEDTIME 05/12/24 05/12/24 Unknown History metoprolol succinate 25 mg 25 mg PO DAILY 05/12/24 05/12/24 Unknown History tablet,extended release 24 hr ondansetron HCl 4 mg tablet 4 mg PO Q6H PRN NAUSEA/VOMITING 05/12/24 05/12/24 Unknown History warfarin 2.5 mg tablet 2 mg PO DAILY@1800 05/12/24 05/12/24 05/09/24 History Physical Exam 2 Vital Signs: Vital Signs: Last Vital Signs Temp 96.8 F 05/14/24 07:25 Pulse 94 05/14/24 07:25 Resp 16 05/14/24 07:25 BP 113/64 05/14/24 07:25 Pulse Ox 97 05/14/24 07:25 O2 Del Method Room Air 05/14/24 07:25 BMI result Body Mass Index 24.1 Const: General: cooperative HEENT: Head: Yes normal to inspection Face and sinus: Yes normal facial exam Mouth: Normal oral and palatal mucosa present Teeth and gingiva: d entition normal Eyes: General: appearance normal, both eyes and all related structures P upils: Equal, round and reactive pupils present Resp: Effort & Inspection: normal respiratory effort Cardio: Rate: regular rate Rhythm: regular rhythm GI: Palpation (GI): Soft to palpation and nontender : General: Yes no CVA tenderness Back/Spine/Pelvis: Back: no CVA tenderness Skin: General skin exam: no rashes or lesions noted Neuro: General: moves all extremities Cranial nerves: Yes Equal, round and reactive pupils present Extrem: General: Yes normal to inspection Psych: Appearance: grossly normal Results Labs 05/13/24 10:56 05/13/24 10:56 Microbiology Microbiology Results: Microbiology 05/12/24 Unknown Urine clean catch - Clean Catch Midstream Urine Culture - Final Mary albicans 05/11/24 22:04 Blood - Venous Blood Culture - Preliminary No growth after 48 hours. 05/11/24 21:42 Blood - Venous Blood Culture - Preliminary No growth after 48 hours. Assessment and Plan (1) Bacteremia: Status: Acute (2) Sepsis: Status: Acute Plan Blood cultures here now negative. If remain negative. 14 finish with po Augment
== END 2024-05-14 11:24 | disposition skilled nursing facility (03) | DRG 872 ==
LOC: HO.ED 22:32 → HO.EDOVER 05-12 01:13 → HO.S3 05-12 12:00
PROVIDERS: Admitting Provider Physician Assistant; Emergency Provider Internal Medicine; PCP Nurse Practitioner Family; Visit Provider Nurse Practitioner Acute Care
DX: A41.9 Sepsis, unspecified organism (principal); I50.32 Chronic diastolic (congestive) heart failure; B37.41 Candidal cystitis and urethritis; I11.0 Hypertensive heart disease with heart failure; E78.5 Hyperlipidemia, unspecified; F03.90 Unspecified dementia, unspecified severity, without behavioral disturbance, psychotic disturbance, mood disturbance, and anxiety; I48.0 Paroxysmal atrial fibrillation; B96.1 Klebsiella pneumoniae [K. pneumoniae] as the cause of diseases classified elsewhere; Z66 Do not resuscitate; Z95.2 Presence of prosthetic heart valve; Z79.01 Long term (current) use of anticoagulants; Z79.82 Long term (current) use of aspirin; Z79.899 Other long term (current) drug therapy
CPT/HCPCS: 36415; 71045; 74177; 80053; 81001; 83605; 85025; 85027; 85610; 85730; 87040; 87086; 87088; 99285; J0696; Q9967

== ENCOUNTER → 2024-05-12 01:00 | Outpatient (BNV) | payer MEDICARE, SELFPAY | PROVIDERS: Admitting Provider Physician Assistant; Emergency Provider Internal Medicine; PCP Nurse Practitioner Family; Visit Provider Internal Medicine | DX: R78.81 Bacteremia (principal); A41.9 Sepsis, unspecified organism | CPT/HCPCS: 99222 ==

== ENCOUNTER → 2024-05-12 01:00 | Outpatient (BNV) | payer MEDICARE, SELFPAY | PROVIDERS: Admitting Provider Physician Assistant; Emergency Provider Internal Medicine; PCP Internal Medicine; Visit Provider Physician Assistant | DX: A41.9 Sepsis, unspecified organism (principal); N39.0 Urinary tract infection, site not specified | CPT/HCPCS: 99223 ==

== ENCOUNTER 2025-03-01 16:13 | Emergency (ER) | payer MEDICARE, OTHER, SELFPAY ==
[2025-03-01 16:20] VITALS: BP 136/76; BP 172/86; PULSE 81; PULSE 92; RESP 18; TEMP 36.6; O2SAT 94; O2SAT 99; BMI 22.2
[2025-03-01 16:56] LABS: Appearance Urine Clear; Glucose Urine UA Negative (Negative); PH 5.5 (5.0-9.0); Specific Gravity - Urine 1.015 (1.005-1.025); UMIC TRIGGER UACC YES
[2025-03-01 16:59] LABS: UACC Culture Trigger YES
[2025-03-01 17:06] LABS: Hematocrit 42.0 % (37.0-47.0); Hemoglobin 13.6 g/dl (12.0-16.0); Imm Gran Abs Auto 0.04 X10*3/uL (0.00-0.03); Imm Gran Pct Auto 0.3 % (0.0-0.4); Lymphocytes Absolute Auto 3.0 X10*3/uL (1.2-4.9); MANUAL DIFF FLAG SCAN; Mean Corpuscular HGB Conc 32.4 g/dl (31.0-35.0); Mean Corpuscular Hemoglobin 30.0 pg (27.0-33.0); Mean Corpuscular Volume 92.5 fL (80.0-98.0); NRBC Abs Auto 0.000 X10*3/uL (0.0-0.012); NRBC Pct Auto 0.0 /100WBC (0.0-0.2); PLT CLUMP 1; Red Blood Count 4.54 X10*6/uL (4.20-5.50); SCAN SMEAR FLAG 1; White Blood Count 13.4 X10*3/uL (4.8-10.8)
[2025-03-01 17:13] LABS: Alanine Aminotransferase < 6 U/L (0-31); Albumin Level 3.7 g/dL (3.5-5.0); Alkaline Phosphatase 61 U/L (39-117); Anion Gap 16 (12-20); Aspartate Amino Transferase 24 U/L (5-31); Blood Urea Nitrogen 20 mg/dL (9-16); Calcium 10.1 mg/dL (8.4-10.2); Carbon Dioxide 19 mmol/L (22-29); Chloride 109 mmol/L (96-108); Creatinine Clr Calc Pharmacy 53.1; Estimated Glomerular Filt Rate > 60; Magnesium 2.4 mg/dL (1.6-2.6); Potassium 4.5 mmol/L (3.3-5.1); Sodium 139 mmol/L (135-145); Total Protein 7.8 g/dL (6.5-8.0)
[2025-03-01 17:16] LABS: Platelet Count 131 X10*3/uL (160-400)
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
--- OUTSIDE RECORDS SUMMARY | 2025-03-01 17:33 | XMS_ITS | Encounter Summary ---
Author Organization [employer] Address [address] [place] [address] Care Team Providers Care Spray Applicator Name Role Phone Marline Latham CNP Primary Care Provider [phone] Encounter Details Date Type Department Care Team (Late st Contact Info) Description 04/18/2024 Orders Only [facility] [address] [place] [address] Marline Latham CNP [address] [place] [address] Social History Tobacco Use Types Packs/Day Years Used Date Smoking Tobacco: Former Cigarettes Smokeless Tobacco: Never Comments:None last 8 days Alcohol Use Standard Drinks/Week Comments Not Currently 0 (1 standard drink = 0.6 oz pur e alcohol) Housing Stability Answer Date Recorded What is your housing situation today? I have kobe cantu 12/04/[address] you li ve. Do you have problems with any of the following? None of the above 12/04/2023 Food Insecurity Answer Date Recorded Within the past 12 months, y ou worried that your food would run out before you got money to buy more: Never True 12/04/2023 Within the past 12 months,th e food you bought just didn't last and you didn't have enough money to get more: Never True 06/2023 Transportation Answer Date Recorded In the past 12 months, has l ack of transportation kept you from medical appts, meetings, work or from getting things needed for daily living? No 12/04/2023 Utilities Answer Date Recorded In the past 12 months, has t he electric, gas, oil or water company threatened to shut off services in your home? No 12/04/2023 Depression Answer Date Recorded Patient Health Questionnaire-2 Score 0 12/04/2023 Internet Access Answer Date Recorded Internet Access Q1 Yes 02/04/2024 Internet Access Q2 Not on file 02/04/2024 Comments Unknown Sex and Gender Information Value Date Recorded Sex Assigned at Female 08/22/2022 11:57 AM EDT Legal Sex Female 8:37 PM EDT Gender Identity Female 08/22/2022 11:57 AM EDT Sexual Orientation Straight 08/25/2022 5: 11 PM EDT Occupation Industry Job Start Date Job End Date Retired 04/17/13 Not on file Not on file Not on file documented as of this encounter Plan of Treatment Not on file documented as of this encounter Procedures Procedure Name Priority Date/Time Associated Diagnosis Comments ECG 12-LEAD Routine 04/16/2024 8:40 AM EST ECG 12-LEAD Routine 04/15/2024 8:[address] ABDOMEN PELVIS W CONTRAST Routine 04/15/2024 8:39 AM EST XR CHEST 2 VIEWS Routine 04/15/2024 8:38 AM EST documented in this encounter Results * ECG 12 lead (04/16/2024 8:40 AM EST) Marline Latham CNP ECG ORDERABLES Final Result * ECG 12 lead (04/15/2024 8:41 AM EST) Marline Latham CNP ECG ORDERABLES Final Result * CT Abdomen Pelvis w/ Contrast (04/15/2024 8:39 AM EST) Anatomical Region Laterality Modality Body, Pelvis, Abdomen Computed T omography Marline Latham RN RENAL IMG CT PROCEDURES Final Resul t * XR Chest 2 Views (04/15/2024 8:38 AM EST) Anatomical Region Laterality Modality Chest Radiographic Leonarda ging Marline Latham CNP IMG XR PROCEDURES Final Resul t documented in this encounter Visit Diagnoses Not on filedocumented in this encounter Care Teams Spray Applicator Relationship Specialty Start Date End Date Marline Latham CNP [address] [place] [address] PCP - General Family Medicine 05/24/22 documented as of this encounter
--- OUTSIDE RECORDS SUMMARY | 2025-03-01 17:33 | XMS_ITS | Clinical Summary ---
Author Organization [facility] Address [address] [facility] [address] [place] [id number] Phone Care Team Providers Care Rail Car Loader Name Role Phone Isabell Bliss NP Primary Care Pr ovider Allergies No known active allergies Medications lisinopril (PRINIVIL,ZESTR IL) 30 MG tablet Take 30 mg by mouth daily. Active atorvastatin (LIPITOR) 10 MG tablet Take 10 mg by mouth daily. Active meloxicam (MOBIC) 7.5 MG tablet Take 15 mg by mouth daily. Active VITAMIN E ACETATE ORAL Active POTASSIUM ORAL Take 350 mg by mouth daily. Active MULTIVITAMIN WITH MINERALS ORAL Active CYANOCOBALAMIN, VITAMIN B-12, (VITAMIN B-12 ORAL) Active ASCORBATE CALCIUM (VITAMIN C ORAL) Active CHOLECALCIFEROL , VITAMIN D3, (VITAMIN D3 ORAL) Active alendronate (FOSAMAX) 10 MG tablet Take 10 mg by mouth daily before breakfast. Take in the morning with a full glass of water, on an empty stomach, and do not take anything else by mouth or lie down for the next 30 min. Active amLODIPine (NORVASC) 10 MG tablet Take 10 mg by mouth daily. Active magnesium oxide 200 mg magnesium Tab Take 400 mg by mouth. Active Active Problems Problem Noted Date Diagnosed Date Paroxysmal atrial fibrillation 08/08/2017 Nonrheumatic aortic valve stenosis 08/08/2017 COPD (chronic obstructive pu lmonary disease) with chronic bronchitis 08/08/2017 Arthritis 08/08/2017 Benign essential hypertension 08/08/2017 Pure hypercholesterolemia 08/08/2017 Family History Medical History Relation Comments Pancreatic cancer Father Breast cancer Mother Heart disease Paternal Grandfather Relation Status Comments Father Mother Paternal Grandfather Social History Tobacco Use Types Packs/Day Years Used Date Smoking Tobacco: Every Day Cigarettes Smokeless Tobacco: Never Tobacco Cessation:Ready to Q uit: Yes; Counseling Given: Yes Alcohol Use Standard Drinks/Week Comments Yes 0 (1 standard drink = 0.6 oz pur e alcohol) 1-2x week Education Answer Date Recorded Are you interested in more education? Not on abel e 09/30/2022 Are you concerned about learning? Not on file 09/30/2022 No 09/30/2022 No 09/30/2022 Digital Access Answer Date Recorded No 10/29/2022 No 10/29/2022 No 10/29/2022 Reliable internet access at home? Not on file 10/29/2022 Device with a working camera? Not on file Comments No Sex and Gender Information Value Date Recorded Sex Assigned at Female 06/12/2017 9:38 AM EST Legal Sex Female 2:07 PM EDT Gender Identity Female 06/12/2017 9:38 AM EST Sexual Orientation Straight 06/12/2017 9: 38 AM EST Last Filed Vital Signs Vital Sign Reading Time Taken Comments Blood Pressure 134/88 08/08/2017 9:30 AM EST Pulse 60 08/08/2017 9:30 AM EST Temperature 36.3 C (97.4 F) 04/08/2017 5:37 PM EDT Respiratory Rate 20 04/08/2017 5:37 PM EDT Oxygen Saturation 97% 08/08/2017 9:30 AM EST Inhaled Oxygen Concentration - - Weight 76.8 kg (169 lb 4.8 oz) 08/08/2017 9:30 A M EST Height 165.1 cm (5' 5 ) 05/09/2017 9:29 AM EST Body Mass Index 28.17 05/09/2017 9:29 AM EST Plan of Treatment Health Maintenance Due Date Last Done Comments Adult Td,Tdap Booster 1945 BLOOD PRESSURE 1945 LIPID PANEL 1946 DEPRESSION SCREENING 1958 SMOKING Hx and SMOKELESS TOBACCO SCREENING 1959 HEPATITIS C SCREENING 1964 PNEUMOCOCCAL VACCINES (50+ years) (1 of 2 - PCV) 1965 ZOSTER VACCINES (1 of 2) 1996 OSTEOPOROSIS SCREENING INITI AL (ONE-TIME) 2011 CREATININE LEVEL 04/08/2018 04/08/2017 POTASSIUM LEVEL 04/08/2018 04/08/2017 RSV VACCINE (1 - 1-dose 75+ series) 2021 INFLUENZA VACCINE (#1) 2025 , 04/29/2014 COVID-19 VACCINE (4 - 2024-2 6 season) 2025 04/02/2021, 08/05/2020, 07/15/2020 HEPATITIS A VACCINES Aged Out No long er eligible based on patient's age to complete this topic HIB VACCINES Aged Out No longer eligi ble based on patient's age to complete this topic MENINGOCOCCAL VACCINES (ACWY) Aged Out No longer eligible based on patient's age to complete this topic MENINGOCOCCAL VACCINES (B) Aged Out N o longer eligible based on patient's age to complete this topic Medical Devices Not on file Procedures Procedure Name Priority Date/Time Associated Diagnosis Comments BASIC METABOLIC PANEL STAT 04/08/2017 3:18 PM EDT from Last 3 Months or Most Recently Relevant to Health Maintenance Results * Basic metabolic panel (04/08/2017 3:18 PM EDT) SODIUM 144 133 - 146 mmol/L [facility] CHLORIDE 107 96 - 108 mmol/L [facility] POTASSIUM 4.5 3.3 - 5.1 mmol/L [facility] CO2 25 21 - 35 mmol/L [facility] BUN 16 6 - 19 mg/dL [facility] CREATININE 0.60 0.5 - 1.5 mg/dL [facility] GLUCOSE 93 70 - 99 mg/dL [facility] CALCIUM 10.2 8.4 - 10.3 mg/dL [facility] EGFR >60 mL/min/1.7 3m2 [facility] Comment:Abnormal if <60. If patient is -Guine[place], multiply the result by 1.21. ANION GAP 17 10 - 20 mmol/L [facility] Blood 04/08/2017 3:18 PM EDT 04/08/2017 3:25 PM EDT us Radames Medeiros MD LAB BLOOD ORDERABLES Fin al Result [facility] [address] [place], [place] [id number] from Last 3 Months or Most Recently Relevant to Health Maintenance [place] [address] [place] [address] MEDICARE SUPPLEMENT MEDICARE PART A & B [facility] MEDICARE SUPPLEMENT MEDICARE PART A & B MEDICARE PART A & B MEDICARE PART A & [place] [address] [place] [address] MEDICARE SUPPLEMENT MEDICARE PART A & [place] [address] [place] [address] MEDICARE SUPPLEMENT MEDICARE PART A & B MEDICARE SUPPLEMENT MEDICARE PART A & B MEDICARE SUPPLEMENT MEDICARE PART A & [place] [address] [place] [address] MEDICARE SUPPLEMENT MEDICARE PART A & B Care Teams Rail Car Loader Relationship Specialty Start Date End Date Isabell Bliss [facility] [place] [address] PCP - General Family Medicine 04/08/17 Additional Source Comments The information contained in this document represents components of the legal health record. It is not the complete legal health record.[facility]
--- OUTSIDE RECORDS SUMMARY | 2025-03-01 17:33 | XMS_ITS | Encounter Summary ---
Author Organization [employer] Address [address] [facility] 7[address] [place] [address] Care Team Providers Care Perfumer Name Role Phone Marline Latham CNP Primary Care Provider [phone] Encounter Details Date Type Department Care Team (Late st Contact Info) Description 04/25/2024 Orders Only [facility] [address] [place] [address] Marline Latham CNP [address] [place] [address] Social History Tobacco Use Types Packs/Day Years [...] Procedure Name Priority Date/Time Associated Diagnosis Comments CBC WITH AUTO DIFFERENTIAL Routine 04/15/2024 10:21 AM EST documented in this encounter Results * CBC auto differential (04/15/2024 10:21 AM EST) Blood Venous blood specimen / Unknown Marline Latham CNP LAB BLOOD ORDERABLES Final Re sult documented in this encounter Visit Diagnoses Not on filedocumented in this encounter Care Teams Perfumer Relationship Specialty Start Date End Date Marline Latham CNP [address] [place] [address] PCP - General Family Medicine 05/24/22 documented as of this encounter
--- OUTSIDE RECORDS SUMMARY | 2025-03-01 17:33 | XMS_ITS | Encounter Summary ---
Author Organization [employer] Address [address] [facility] 7[address] [place] [address] Care Team Providers Care Picture Engraver Name Role Phone Marline Latham CNP Primary Care Provider [phone] Encounter Details Date Type Department Care Team (Late st Contact Info) Description 02/22/2024 Orders Only [facility] [address] [place] [address] Marline Latham CNP [address] [place] [address] Social History Tobacco Use Types Packs/Day Years [...] Procedure Name Priority Date/Time Associated Diagnosis Comments TRANSTHORACIC ECHO (TTE) COMPLETE Routine 02/12/2024 3:[address] ABDOMEN PELVIS W CONTRAST Routine 02/10/2024 3:47 PM EDT documented in this encounter Results * Transthoracic echo (TTE) complete (02/12/2024 3:48 PM EDT) us Marline Latham CNP CV ECHO PROCEDURES Final Resu lt * CT Abdomen Pelvis w/ Contrast (02/10/2024 3:47 PM EDT) Anatomical Region Laterality Modality Body, Pelvis, Abdomen Computed T omography us Marline Latham CNP IMG CT PROCEDURES Final Resul t documented in this encounter Visit Diagnoses Not on filedocumented in this encounter Care Teams Picture Engraver Relationship Specialty Start Date End Date Marline Latham CNP [address] [place] [address] PCP - General Family Medicine 05/24/22 documented as of this encounter
--- OUTSIDE RECORDS SUMMARY | 2025-03-01 17:33 | XMS_ITS | Clinical Summary ---
Author Organization [employer] Address [address] [facility] 7t [place] [address] Care Team Providers Care Stone Cutter Name Role Phone Marline Latham XIOMY Primary Care Provider [phone] Allergies Active Allergy Reactions Criticality Noted Date Comments Other Rash Low 07/13/2022 Horse Serum large local reaction Medications acetaminophen (Tylenol 8 Hour) 650 MG ER tablet 2 tablets in the morning and 2 tablets at noon and 2 tablets in the evening. Active amLODIPine (Norvasc) 10 MG tablet Take 10 mg by mouth in the morning. 2 Active metoprolol succinate XL (Toprol-XL) 25 MG 24 hr tablet Take 1 tablet by mouth. 3 Active digoxin (Lanoxin) 125 MCG tablet Take 1 tablet by mouth. 3 Active warfarin (Coumadin) 5 MG tablet TAKE 1 TO 2 TABLETS BY MOUTH DAILY DIRECTED 180 tablet 3 4 Active Melatonin 1 MG capsule Take 2 mg by mouth if needed at bedtime (sleep). Active atorvastatin (Lipitor) 10 MG tabletIndications:M ixed hyperlipidemia TAKE 1 TABLET BY MOUTH ONCE DAILY 90 tablet 3 4 Active furosemide (Lasix) 40 MG tabletIndications:C hronic diastolic heart failure (CMS/HCC) Take 1 tablet (40 mg) by mouth 2 times daily. 180 tablet 3 4 Active alendronate (Fosamax) 70 MG tabletIndications:A ge-related osteoporosis without current pathological fracture Take 1 tablet (70 mg) by mouth every 7 (seven) days. Take in the morning with a full glass of water, on an empty stomach, and do not take anything else by mouth or lie down for the next 30 min. 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 Mild mitral annular calcification. Mild mitral regurgitation. There is a bioprosthetic valve (REGAN: S3 Ultra #23) in the aortic position, mean gradient is 10 mmHg. There is no valvular or paravalvular leak. The left ventricular size, wall thickness and LV systolic function normal. LVEF 60-65 %. No regional wall motion abnormalities. Unable to assess diastolic function due to atrial fibrillation. Slow transit constipation 08/25/2022 Thyroid nodule 08/25/2022 Assessment & Plan (08/25/2022 3:12 PM EDT): hyroid Nodule: CT done in ER 10/2021 s/p fall with noted 1.5 cm nodule in right lobe of thyroid and US recommended if this is unknown finding; TSH and thyroid US ordered; TSH level normal. US guided bx results 06/2022: Bx; benign follicular nodule. Tobacco use disorder 08/25/2022 Chronic diastolic heart failure 08/22/2022 Osteoarthritis of hand 05/09/2022 Other spondylosis, thoracic region 05/09/2022 Resolved Problems Problem Noted Date Diagnosed Date Resolved Date Hypertensive retinopathy 08/26/2022 Left ventricular hypertrophy 08/25/2022 04/29/2023 Immunizations Immunization Administration Dates Next Due Influenza Quadrivalent Adjuvanted 05/10/2023, Influenza injectable quadriv alent preservative free 03/21/2022 Influenza, High Dose Seasona l, Preservative Free 03/27/2019,03/12/2017,03/22/2016 Influenza, IIV3, injectable 04/20/2024,0 02/14/2020,03/13/2015,04/29 Pfizer Covid-19 Vaccine 12+ 04/02/2021,,07/15/2020 Pfizer Covid-19 Vaccine 12+ Bivalent 03/21/2022 Pneumococcal Conjugate PCV 13 03/13/2015 Pneumococcal Polysaccharide PPSV23 06/21/2016 RSV Adjuvant 05/10/2023 Tdap 10/25/2021 Zoster, live 01/27/2015 Family History Medical History Relation Name Comments Lung cancer Brother Multiple sclerosis Daughter Pancreatic cancer Father pancreatic ca 77 Breast cancer Mother breast ca at 4 6 Heart attack Paternal Grandmother paterna l grandmother at [place] young pt Cataracts Neg Hx Macular degeneration Neg Hx Relation Name Status Comments Brother Alive Daughter Father Other Mother Paternal Grandmother Sister Alive Social History Tobacco Use Types Packs/Day Years Used Date Smoking Tobacco: Former Cigarettes Smokeless Tobacco: Never Tobacco Cessation:Counseling Given: Not Answered Comments:None last 8 days Alcohol Use Standard [...] file Not on file Not on file Last Filed Vital Signs Vital Sign Reading Time Taken Comments Blood Pressure 114/70 12/04/2023 4:34 PM EDT Pulse 78 12/04/2023 4:34 PM EDT Temperature 36.2 C (97.1 F) 12/04/2023 4:34 PM EDT Respiratory Rate 15 12/04/2023 4:34 PM EDT Oxygen Saturation 96% 12/04/2023 4:34 PM EDT Inhaled Oxygen Concentration - - Weight 77.1 kg (170 lb) 12/04/2023 4:34 PM EDT Height 162.6 cm (5' 4 ) 12/04/2023 4:34 PM EDT Body Mass Index 29.18 12/04/2023 4:34 PM EDT Plan of Treatment Health Maintenance Due Date Last Done Comments Alcohol/Substance Use Screening 1957 Hepatitis C Screening 1964 Hepatitis A Vaccines (1 of 2 - Risk 2-dose series) 1965 Hepatitis B Vaccines (1 of 3 - Risk 3-dose series) 2006 Zoster Vaccines (2 of 3) 03/24/2015 01/27/2015 Depression Screening 12/03/2024 12/04/2023, 12/04/19 24 SDOH Screening 12/03/2024 12/04/2023 COVID-19 Vaccine ( season) 2025 06/21/2023, 03/21/2022, 10/09/2021, Additional history exists Influenza Vaccine (#1) 2025 , 05/10/2023, 03/21/2022, Additional history exists Tobacco Screening 04/18/2025 04/18/2024 Lipid Panel 01/31/2028 01/30/2023, 07/06, 12/18/2019 DTaP/Tdap/Td Vaccines (2 - Td or Tdap) 10/26/2031 10/25/2021 Pneumococcal Vaccine: 50+ Years Completed 06/21/2016, 03/13/2015 RSV Patients and Patients Aged 60 years or older Completed 05/10/2023 HIB Vaccines Aged Out No longer eligi ble based on patient's age to complete this topic HPV Vaccines Aged Out No longer eligi ble based on patient's age to complete this topic IPV Vaccines Aged Out No longer eligi ble based on patient's age to complete this topic Meningococcal B Vaccine Aged Out No l onger eligible based on patient's age to complete this topic Meningococcal Vaccine Aged Out No diane sarah eligible based on patient's age to complete this topic RSV under 20 months Aged Out No longe r eligible based on patient's age to complete this topic Rotavirus Vaccines Aged Out No longer eligible based on patient's age to complete this topic Procedures Procedure Name Priority Date/Time Associated Diagnosis Comments LIPID PANEL, STANDARD Routine 01/30/2023 11:57 AM EDT Chronic diastolic heart failure (CMS/HCC) Aortic valve stenosis, etiology of cardiac valve disease unspecified Primary hypertension Paroxysmal A-fib (CMS/HCC) from Last 3 Months or Most Recently Relevant to Health Maintenance Results * (ABNORMAL) Lipid panel (01/30/2023 11:57 AM EDT) Cholesterol, Total 159 (<200) MG/DL [facility] Triglyceride (mg/dL) in Serum/Plasma 158(H) (<150) MG/DL [facility] HDL Cholesterol 35(L) (>39) MG/DL [facility] LDL Cholesterol, Calculated 92 (0-130) MG/DL [facility] Non HDL Chol. (LDL+VLDL) 124 (<160) MG/DL [facility] Comment: Testing performed or reported by [facility], a Service of [facility], [address] [place] [id number] William Dominguez MD, Pressroom Foreman BENSON# [id number] Blood Venous blood specimen / Unknown 01/30/2023 11:57 AM EDT 01/30/2023 11:58 AM EDT us Marline Latham WET WASHER MACHINE LAB BLOOD ORDERABLES Final Re sult [facility] [address] [address] from Last 3 Months or Most Recently Relevant to Health Maintenance Insurance MEDICARE Care Teams Stone Cutter Relationship Specialty Start Date End Date Malrine Latham CNP [address] [place] [address] PCP - General Family Medicine 05/24/22
--- OUTSIDE RECORDS SUMMARY | 2025-03-01 17:33 | XMS_ITS | Encounter Summary ---
Author Organization [facility] Address [address] [address] Phone Care Team Providers Care Rotary Furnace Operator Name Role Phone Isabell Bliss NP Primary Care Pr ovider Reason for Referral * Outpatient Procedure - Closed Specialty Diagnoses / Procedures Referred By Contsusan t Referred To Contact Diagnoses Paroxysmal A-fib Procedures Adult Echo TTE Ina Gallegos MD Phone: tel: fax: mailto:[email or web address] Referral ID Status Reason Start Date Expiration Date Visits Re quested Visits Authorized [id number] Closed 04/12/2017 04/12/2018 1 1 Encounter Details Date Type Department Care Team (Late st Contact Info) Description 04/12/2017 Ancillary Orders Virtual Department [address] [place] [address] Ina Gallegos MD [address] [facility] [address] [place] [address] [email or web address] Paroxysmal a-fib Social History Tobacco Use Types Packs/Day Years Used Date Smoking Tobacco: Every Day Smokeless Tobacco: Never Alcohol Use Standard Drinks/Week Comments Yes 0 (1 standard drink = 0.6 oz pur e alcohol) 1-2x week Comments No Sex and Gender Information Value Date Recorded Sex Assigned at Female 06/12/2017 9:38 AM EST Legal Sex Female 2:07 PM EDT Gender Identity Female 06/12/2017 9:38 AM EST Sexual Orientation Straight 06/12/2017 9: 38 AM EST documented as of this encounter Plan of Treatment Not on file documented as of this encounter Results * TTE COMPREHENSIVE (05/02/2017 10:26 AM EST) Body Surface Area 1.8 m2 Weight 70 kg Systolic BP 126 mmHg Diastolic BP 74 mmHg Interventricular Septum Thickness 11 mm Left Ventricle Internal Diameter End Diastole 46 37 - 52 mm Left Ventricle Internal Diameter End Systole 29 22 - 35 mm Left Ventricular Outflow Tract Diameter 17 mm LVOT VTI REST 283 mm Left Ventricular Outflow Tract Velocity 1,240 mm/s Left Ventricular Outflow Tract Gradient at Rest 6 mmHg Left Ventricular Posterior Wall Thickness 8 mm Ejection Fraction 64 50 - 75 Percent Left Atrium Dimension Anterior-Posterior 37 15 - 40 mm Aortic Valve Mean Gradient 23 mmHg Aortic Valve Time Velocity Integral 687 mm Aortic Valve Peak Velocity 2,780 mm/s Aortic Valve Peak Gradient 37 mmHg Aortic Sinus Diameter 30 mm Inferior Vena Cava Diameter 14 0.0 - 21 mm Mitral Valve A Wave Speed 104.0 mm/s Mitral Valve E Wave Speed 72.4 mm/s Right Ventricle Basal Diameter 24 25 - 41 mm Tricuspid Valve Peak Velocity 17.20 mm/s Raw LV EF% 60 % Height 165 cm Ascending Aorta Diameter 33 mm Aortic Valve Sinus Index 1 17 20 - 32 mm Ascending Aorta Diameter 18 mm Aortic Sinus Index 17 mm Ascending Aorta Index 18 mm Anatomical Region Laterality Modality Heart Ultrasound Narrative 05/02/2017 7:41 PM EST Left ventricular cavity size is normal and the left ventricular wall thickness is increased. There is mild concentric left ventricular hypertrophy. Left ventricular systolic function is normal. There are no segmental left ventricular wall motion abnormalities noted. The estimated ejection fraction is 64% (Normal 50-75%). The left ventricular ejection fraction was measured by the bi-plane method of discs. Doppler profiles appear consistent with impaired left ventricular relaxation (a sign of diastolic dysfunction). There is restricted aortic leaflet opening consistent with moderate valvular aortic stenosis. Peak velocity is 3.1 m/s. The peak aortic valve gradient is 37 mmHg. The mean aortic gradient is 23 mmHg. There is evidence of mild aortic regurgitation by color and spectral Doppler. RVSP 20 mmHg, normal pulmonary pressures. No prior studies for comparison. Left Ventricle Left ventricular cavity size is normal and the left ventricular wall thickness is increased. There is mild concentric left ventricular hypertrophy. Left ventricular systolic function is normal. There are no segmental left ventricular wall motion abnormalities noted. The estimated ejection fraction is 64% (Normal 50-75%). The left ventricular ejection fraction was measured by the bi-plane method of discs. Doppler profiles appear consistent with impaired left ventricular relaxation (a sign of diastolic dysfunction). Right Ventricle The right ventricular size is normal. The right ventricular systolic function is normal. Left Atrium The left atrium is normal in size. The left atrial anterior-posterior dimension measures 37 mm (normal 15-40 mm). Right Atrium The right atrium is normal in size. The IVC is normal in size (2.1cm or less). The IVC measures 14 mm (normal <=21 mm). The IVC demonstrates normal collapse with inspiration which is consistent with normal RA pressure. Mitral Valve The mitral valve appears normal. The e/A ratio is 0.7 There is no evidence of mitral stenosis. There is trace mitral regurgitation detected by spectral and color Doppler. Tricuspid Valve The tricuspid valve appears normal. There is evidence of trace tricuspid regurgitation by color and spectral Doppler. Peak gradient 17 mmHg. Assuming RAP 3, RVSP 20 mmHg, normal pulmonary pressures. Aortic Valve The aortic valve appears abnormal. The aortic valve is tricuspid. There is mild thickening of multiple aortic leaflets. There is restricted aortic leaflet opening consistent with moderate valvular aortic stenosis. Peak velocity is 3.1 m/s. The peak aortic valve gradient is 37 mmHg. The mean aortic gradient is 23 mmHg. There is evidence of mild aortic regurgitation by color and spectral Doppler. The visualized portions of the thoracic aorta appear normal. Pulmonic Valve The pulmonary valve appears normal. There is no evidence of pulmonary regurgitation by color and spectral Doppler. Pericardium There is no evidence of pericardial effusion. General Findings The image quality was fair (3). Rhythm is sinus. Comparison Findings No prior studies for comparison. us Ina Gallegos MD CV ECHO ORDERABLES Final Res ult documented in this encounter Visit Diagnoses Diagnosis Paroxysmal A-fib Paroxysmal A-fib documented in this encounter Care Teams Rotary Furnace Operator Relationship Specialty Start Date End Date [facility] [place] [id number] PCP - General Family Medicine 04/08/17 documented as of this encounter Additional Source Comments The information contained in this document represents components of the legal health record. It is not the complete legal health record.[facility]
--- OUTSIDE RECORDS SUMMARY | 2025-03-01 17:33 | XMS_ITS | Encounter Summary ---
Author Organization [employer] Address [address] [place] [address] [address] [place] [address] Care Team Providers Care Multimedia Producer Name Role Phone Marline Latham CNP Primary Care Provider [phone] Encounter Details Date Type Department Care Team (Late st Contact Info) Description 05/09/2022 Orders Only [facility] [address] [place] [address] Marline Latham CNP [address] [place] [address] Social History Tobacco Use Types Packs/Day Years Used Date Smoking Tobacco: Never Assessed Comments Unknown Sex and Gender Information Value Date Recorded Sex Assigned at Female 08/22/2022 11:57 AM EDT Legal Sex Female 8:37 PM EDT Gender Identity Female 08/22/2022 11:57 AM EDT Sexual Orientation Straight 08/25/2022 5: 11 PM EDT documented as of this encounter Plan of Treatment Not on file documented as of this encounter Procedures Procedure Name Priority Date/Time Associated Diagnosis Comments DRUGS OF ABUSE 6 W/REFLEX CONFIRMATION, URINE Routine 01/30/2023 1:06 PM EDT NOTES AND COMMENTS Routine 01/30/2023 1: 06 PM EDT US GUIDED NEEDLE PLACEMENT Routine 06/01/2022 1:30 PM EST [facility] CYTOLOGY Routine 06/01/2022 8:46 AM EST documented in this encounter Results * NOTES AND COMMENTS (01/30/2023 1:06 PM EDT) Notes And Comments (NOTE) [facility] Comment: This drug testing is for medical treatment only. Analysis was performed as non-forensic testing and these results should be used only by healthcare providers to render diagnosis or treatment, or to monitor progress of medical conditions. = Oxycodone Notes: Oxycodone, Noroxycodone detected is consistent with the use of the drug Oxycodone. = The metabolite Oxymorphone is not present at or above the cutoff. = LDT Notes: Confirmation tests were developed and their analytical performance characteristics have been determined by [employer]. It has not been cleared or approved by the FDA. This assay has been validated pursuant to the CLIA regulations and is used for clinical purposes. = = Healthcare Providers needing Interpretation assistance, please contact us at [phone] ( ) M-F, 8am to 10pm EST Test Performed by: [employer] [facility], [address] [place] [address]. [id number]. Curriculum Development Manager: Marybeth Oliver MD. Testing performed or reported by [facility], a Service of [facility], [address] [place] [id number] William Dominguez MD, Customer Service Administrator [facility]# [id number] 01/30/2023 1:06 PM EDT 01/30/2023 1:09 PM EDT Marline Latham [facility] BLOOD ORDERABLES Final Re sult [facility] [address] [place] [address] * (ABNORMAL) Drugs of Abuse 6 w/Reflex Confirmation, Urine (01/30/2023 1:06 PM EDT) Amphetamine Screen Urine NONE DETECTED (NDT) [facility] Comment: ASSAY CUTOFF 1000 NG/ML d-METHAMPHETAMINE This is an unconfirmed screening result. Unconfirmed results are to be used for medical purposes only. Interpretation should be confirmed with clinical symptoms or by an alternative method. Barbiturates Screen, Urine NONE DETECTED (NDT) [facility] Comment: ASSAY CUTOFF 200 NG/ML SECOBARBITAL This is an unconfirmed screening result. Unconfirmed results are to be used for medical purposes only. Interpretation should be confirmed with clinical symptoms or by an alternative method. Benzodiazepines Screen Urine NONE DETECTED (NDT) [facility] Comment: ASSAY CUTOFF 300 NG/ML NORDIAZEPAM This is an unconfirmed screening result. Unconfirmed results are to be used for medical purposes only. Interpretation should be confirmed with clinical symptoms or by an alternative method. LORAZEPAM AND METABOLITE ARE NOT DETECTED BY THIS METHOD Cocaine Screen Urine NONE DETECTED (NDT) [facility] Comment: ASSAY CUTOFF 300 NG/ML BENZOYLECOGNINE This is an unconfirmed screening result. Unconfirmed results are to be used for medical purposes only. Interpretation should be confirmed with clinical symptoms or by an alternative method. Methadone Screen, Urine NONE DETECTED (NDT) [facility] Comment:ASSAY CUTOFF 300 NG/ ML d,[id number] CODEINE, URINE NEGATIVE [facility] Comment: Reference range: <50 Unit: ng/mL HYDROCODONE, URINE NEGATIVE [facility] Comment: Reference range: <50 Unit: ng/mL HYDROMORPHONE, URINE NEGATIVE [facility] Comment: Reference range: <50 Unit: ng/mL MORPHINE, URINE NEGATIVE [facility] Comment: Reference range: <50 Unit: ng/mL NORHYDROCODONE, URINE NEGATIVE [facility] Comment: Reference range: <50 Unit: ng/mL Opiates Comments See LDT Notes [facility] NOROXYCODONE, URINE 2,820(H) [facility] Comment: Reference range: <50 Unit: ng/mL Oxycodone Urine Screen 2,520(H) [facility] Comment: Reference range: <50 Unit: ng/mL OXYMORPHONE, URINE NEGATIVE [facility] Comment: Reference range: <50 Unit: ng/mL Oxycodone Comments See Oxycodone Notes, LDT Notes [facility] Comment: Test Performed by: [facility], [address] [place] [address]. [id number]. Curriculum Development Manager: Marybeth Oliver MD. Testing performed or reported by [facility], a Service of [facility], [address] [place] [address] William Dominguez MD, Customer Service Administrator [facility]# [id number] 01/30/2023 1:06 PM EDT 01/30/2023 1:09 PM EDT us Marline Latham [facility] URINE ORDERABLES Final Re sult [facility] [address] [place] [address] * US Guided Needle Placement (06/01/2022 1:30 PM EST) Anatomical Region Laterality Modality Ultrasound 06/01/2022 1:30 PM EST Narrative 06/01/2022 4:03 PM EST ULTRASOUND-GUIDED RIGHT THYROID LOBE BIOPSY Reason: Multinodular goiter. TI-RADS Category 4 nodule in the right lobe. TECHNIQUE: The risks and benefits of procedure were described to patient in detail, including but not limited to bleeding, infection, injury to surrounding organs organs, or pain. Note is made that the patient is on Coumadin due to atrial fibrillation, with an increased bleeding risk. A consent form was obtained prior to the procedure with acknowledgment and understanding of these risks. The informed consent was signed and placed in the medical record. ANESTHESIA: 1% lidocaine local anesthesia. Limited thyroid US scan was performed by the radiologist to confirm character of right thyroid lobe nodule and 2 determined skin entry point and biopsy depth. It was decided to biopsy from a medial to lateral approach. Skin entry point was marked with skin marker. The anterior neck was prepared and draped in sterile fashion. Skin entry site and subcutaneous and deep tissues were infused with 1% lidocaine buffered with bicarbonate. Under continuous ultrasound guidance, a 22-gauge needle was advanced to the periphery of the target lesion. FNA was performed. This was repeated 2 additional times using new needles and syringes. The specimens were placed in CytoLyt for pathology analysis. Direct pressure was applied to the skin entry site and hemostasis was obtained. Scanning of the left thyroid lobe was then performed. Multiple small nodules are present. The previously noted 1.4 cm nodule in the mid to lower portion of the left lobe appears to contain both solid and cystic areas and is felt to be TI-RADS Category 3 rather than category 4. Its appearance is similar to other nodules in the left lobe. Biopsy therefore is not felt to be warranted. Sterile dressing was applied to the needle puncture site. Patient tolerated procedure well. Post procedure imaging did not demonstrate any evidence of hematoma or immediate complication. Patient was discharged from radiology department to short term observation suite in stable condition. EBL: Minimal Patient was instructed to call the radiology department with any questions or concerns ([phone]). IMPRESSION: Ultrasound-guided FNA x3 of a nodule in the midportion of the RIGHT thyroid lobe. No immediate complication. Cytology report pending. Additional evaluation of the LEFT lobe does not demonstrate any nodule warranting biopsy. The previously questioned nodule in the mid to lower portion of the left lobe is felt to have a cystic and solid appearance consistent with TI-RADS Category 3, rather than category 4. Only sonographic follow-up is recommended. Patient is to follow-up with Dr. Marline Latham [employer] for test results and further management. WSN: [id number] Ordering Physician: Marline Latham Dictated By: Khoa Diaz MD Dictated Date/Time: 06/01/22 4:00 pm Reviewed By: Khoa Diaz MD Signed By: Khoa Diaz MD Signed Date/Time: 06/01/22 4:00 pm Transcribed By: WILLIAM Transcribed Date/Time: 06/01/22 3:51 pm Procedure Note Donotuseinterpreter, Image - 10/10/2022 ULTRASOUND-GUIDED RIGHT THYROID LOBE BIOPSY Reason: Multinodular goiter. TI-RADS Category 4 nodule in the rightlobe. TECHNIQUE: The risks and benefits of procedure were described to patientin detail, including but not limited to bleeding, infection, injury tosurrounding organs organs, or pain. Note is made that the patient is on Coumadin dueto atrial fibrillation, with an increased bleeding risk. A consent form was obtained prior to the procedure with acknowledgment and understanding ofthese risks. The informed consent was signed and placed in the medical record. ANESTHESIA: 1% lidocaine local anesthesia. Limited thyroid US scan was performed by the radiologist to confirmcharacter of right thyroid lobe nodule and 2 determined skin entry point and biopsydepth. It was decided to biopsy from a medial to lateral approach. Skin entry pointwas marked with skin marker. The anterior neck was prepared and draped insterile fashion. Skin entry site and subcutaneous and deep tissues were infusedwith 1% lidocaine buffered with bicarbonate. Under continuous ultrasound guidance, a 22-gauge needle was advanced tothe periphery of the target lesion. FNA was performed. This was repeated 2 additional times using new needles and syringes. The specimens were placedin CytoLyt for pathology analysis. Direct pressure was applied to the skinentry site and hemostasis was obtained. Scanning of the left thyroid lobe was then performed. Multiple smallnodules are present. The previously noted 1.4 cm nodule in the mid to lower portion ofthe left lobe appears to contain both solid and cystic areas and is felt betzy TI-RADS Category 3 rather than category 4. Its appearance is similar toother nodules in the left lobe. Biopsy therefore is not felt to be warranted. Sterile dressing was applied to the needle puncture site. Patienttolerated procedure well. Post procedure imaging did not demonstrate any evidenceof hematoma or immediate complication. Patient was discharged from radiology department to short term observationsuite in stable condition. EBL: Minimal Patient was instructed to call the radiology department with any questionsor concerns ([phone]). IMPRESSION: Ultrasound-guided FNA x3 of a nodule in the midportion of theRIGHT thyroid lobe. No immediate complication. Cytology report pending. Additional evaluation of the LEFT lobe does not demonstrate any nodule warranting biopsy. The previously questioned nodule in the mid to lowerportion of the left lobe is felt to have a cystic and solid appearance consistentwith TI-RADS Category 3, rather than category 4. Only sonographic follow-upis recommended. Patient is to follow-up with Dr. Marline Latham [employer] for test resultsand further management. WSN: [id number] Ordering Physician: Marline Latham Dictated By: Khoa Diaz MD Dictated Date/Time: 06/01/22 4:00 pm Reviewed By: Khoa Diaz MD Signed By: Khoa Diaz MD Signed Date/Time: 06/01/22 4:00 pm Transcribed By: WILLIAM Transcribed Date/Time: 06/01/22 3:51 pm us Marline Latham [facility] US PROCEDURES Final Resul t * [facility]ology (06/01/2022 8:46 AM EST) Result [facility] Comment: Patient Name: CARMEN GRIFFIN Lab Patient : 1945 (Age: 76) Collection Date: 06/01/2022 Accession Date: 06/02/2022 Sign Out Date: 06/03/2022 Tissue Source: 1:THYROID, RIGHT LOBE, NEEDLE ASPIRATION: 2:THYROID, RIGHT LOBE, NEEDLE ASPIRATION: Final Diagnosis: Part 1: THYROID, RIGHT LOBE, NEEDLE ASPIRATION: BENIGN. Benign follicular nodule. Part 2: THYROID, RIGHT LOBE, NEEDLE ASPIRATION: BENIGN. Benign follicular nodule. Primary Pathologist:YAMILET ANDRES M.D. electronically signed out by: YAMILET ANDRES M.D. / [facility] Clinical History: Part 1 Multiple thyroid nodules, dominant right lobe nodule. Patient is on coumadin. Part 2 Multiple thyroid nodules, dominant right lobe nodule. Patient is on coumadin. Gross Description: Part 1 Specimen received in CytoLyt. (43cc) [place], hazy fluid 1 ThinPrep cellular enhancement technique Part 2 Specimen received in CytoLyt. (45cc) Light pink, clear fluid 1 ThinPrep cellular enhancement technique Phone #: [phone], On-Call Pathologist: [phone] Testing performed or reported by [facility], a Service of [facility], [address] [place] [address] Fadi Childress MD, Customer Service Administrator [facility]# [id number] 06/01/2022 8:46 AM EST 06/02/2022 8:46 AM EST us Marline Latham CNP LAB CYTOLOGY ORDERABLES Final Result [facility] [address] [place] [id number] documented in this encounter Visit Diagnoses Not on filedocumented in this encounter Care Teams Multimedia Producer Relationship Specialty Start Date End Date Marline Latham CNP [address] [facility] [address] PCP - General Family Medicine 05/24/22 documented as of this encounter
[2025-03-01 17:41] VITALS: BP 161/91; PULSE 96; RESP 18; TEMP 36.6; O2SAT 96
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
--- NOTE | 2025-03-01 20:39 | PC.NURSE ---
Called report [facility] facility, informed them pt is stable to come back to there facility
[2025-03-01 21:15] VITALS: BP 160/88; PULSE 90; RESP 18; O2SAT 97
[2025-03-01 21:22] VITALS: BP 160/88; PULSE 90; RESP 18; TEMP 37.1; O2SAT 97
== END 2025-03-01 21:24 | disposition home or self-care (01) ==
PROVIDERS: Emergency Provider Emergency Medicine
DX: N39.0 Urinary tract infection, site not specified (principal); F03.911 Unspecified dementia, unspecified severity, with agitation; I11.0 Hypertensive heart disease with heart failure; I50.9 Heart failure, unspecified; I48.91 Unspecified atrial fibrillation; Z79.01 Long term (current) use of anticoagulants; Z79.899 Other long term (current) drug therapy
CPT/HCPCS: 36415; 80053; 81001; 83735; 85025; 87086; 87088; 87186; 99283; 99284

== ENCOUNTER 2025-03-06 12:54 | Emergency (ER) | payer MEDICARE, OTHER, SELFPAY ==
--- NOTE | 2025-03-06 | ECG_ITS ---
Test Reason : UTI Blood Pressure : */* mmHG Vent. Rate : 88 BPM Atrial Rate : * BPM P-R Int : * ms QRS Dur : 90 ms QT Int : 392 ms P-R-T Axes : * 41 36 degrees QTcB Int : 474 ms Atrial fibrillation Septal infarct , age undetermined Abnormal ECG No previous ECGs available Referred By: Reymundo Porras Electronically Signed By: NICOLE BORJAS
[2025-03-06 13:04] VITALS: BP 144/73; PULSE 78; RESP 16; TEMP 36.7; O2SAT 97
[2025-03-06 13:07] VITALS: BP 148/88; PULSE 78; O2SAT 98
[2025-03-06 13:27] VITALS: BP 129/67; PULSE 79; RESP 16; TEMP 36.6; O2SAT 96; BMI 25.7
--- NOTE | 2025-03-06 13:47 | ED.GENADULT ---
HPI - General Adult General Chief complaint: General Medical Stated complaint: DRUG RESISTANT UTI PER EMS Time Seen by Provider: 03/06/25 13:25 History of Present Illness ED Provider: Reymundo Porras MD HPI narrative: 79-year-old female with recurrent UTIs sent for ?readmission and PICC line ?. She was on nitrofurantoin subsequently cefpodoxime unclear exactly how many days. Culture of the urine sent on March 01 grew Enterococcus faecium with pain resistance. Patient is without fever no complaints here she is pleasantly demented Related Data Home Medications ?Medication ?Instructions ?Recorded ?Confirmed Lactobacillus acidophilus 1,000 mmu cells PO DAILY 05/12/24 05/12/24 (Acidophilus capsule) alendronate 70 mg tablet 70 mg PO SA 05/12/24 05/12/24 aspirin 81 mg tablet,delayed 81 mg PO DAILY 05/12/24 05/12/24 release atorvastatin 10 mg tablet 10 mg PO BEDTIME 05/12/24 05/12/24 bupropion HCl 150 mg 24 hr tablet, 150 mg PO QAM 05/12/24 05/12/24 extended release calcium 600 mg (as 1 tab PO BID 05/12/24 05/12/24 carbonate)-vitamin D3 5 mcg (200 unit) tablet digoxin 125 mcg (0.125 mg) tablet 125 mcg PO DAILY@1700 05/12/24 05/12/24 furosemide 20 mg tablet 20 mg PO DAILY@1400 05/12/24 05/12/24 furosemide 40 mg tablet 40 mg PO DAILY 05/12/24 05/12/24 lisinopril 10 mg tablet 10 mg PO DAILY 05/12/24 05/12/24 melatonin 3 mg tablet 3 mg PO BEDTIME 05/12/24 05/12/24 metoprolol succinate 25 mg 25 mg PO DAILY 05/12/24 05/12/24 tablet,extended release 24 hr ondansetron HCl 4 mg tablet 4 mg PO Q6H PRN NAUSEA/VOMITING 05/12/24 05/12/24 warfarin 2.5 mg tablet 2 mg PO DAILY@1800 05/12/24 05/12/24 Previous Rx's ?Medication ?Instructions ?Recorded cefuroxime axetil 500 mg tablet 500 mg PO BID #28 tabs 05/14/24 nitrofurantoin 100 mg PO Q12H 7 days #14 caps 03/01/25 monohydrate/macrocrystals 100 mg capsule (Macrobid) Allergies Allergy/AdvReac Type Severity Reaction Status Date / Time No Known Allergies Allergy Verified 03/06/25 13:30 [facility] Past Medical History Medical History HLD (hyperlipidemia) History of transcatheter aortic valve replacement (TAVR) Dementia HTN (hypertension) CHF (congestive heart failure) COPD (chronic obstructive pulmonary disease) Gram-negative bacteremia Cholecystitis with perforation of gallbladder Liver abscess Atrial fibrillation Surgical History Hx laparoscopic cholecystectomy Social History Social History Household Members: Other Housing: Senior Living Do you presently have visiting nurse or other home services: No Patient Tobacco Use Status: Never used Tobacco Advance Directives: Yes Advance Directives on File: Yes Advance Directives Date on File: 05/11/24 service: No Physical Exam ED Exam Exam: GENERAL: Well appearing. No apparent distress. Alert. Pleasantly demented HEAD/NECK: No visual trauma. EYES: Normal to inspection. No conjunctival erythema. No discharge. ENMT: Hearing grossly normal. External nose normal. RESPIRATORY: Respiratory effort normal. CARDIOVASCULAR: Additional details (Grossly well perfused). SKIN: No jaundice. NEUROLOGICAL: Alert. Moving all extremities x4. Additional details (No gross motor deficits. Normal tone. ). PSYCHIATRIC: Alert. Appearance appropriate for situation. Vital Signs: Vital Signs - 24 hr 03/06/25 13:04 03/06/25 13:27 03/06/25 14:06 Temperature 98.0 F 97.8 F 97.4 F Pulse Rate 78 79 92 Respiratory Rate 16 16 16 Blood Pressure 144/73 H 129/67 148/82 H Pulse Oximetry 97 96 98 Oxygen Delivery Method Room Air Room Air Room Air 03/06/25 17:53 Temperature 97.4 F Pulse Rate 92 Respiratory Rate 16 Blood Pressure 148/82 H Pulse Oximetry 98 Oxygen Delivery Method Room Air BMI result Body Mass Index 25.7 Procedures Procedure Narrative Procedure Narrative: Ultrasound Guided Peripheral Intravenous Catheter Placement Indication: Intravenous Access Location: Right ??Vascular Location of Catheter Tip: Proximal brachial Provider: Self Date and time: Proximally 14:30 03/06/2025 I was approached by nursing staff and informed that multiple unsuccessful attempts had been made to establish IV access in the patient. The patients arm was surveyed with the ultrasound for verification of vessel collapsibility, patency, depth and caliber, as well as identification of nearby structures. The target area was prepped with chlorhexidine. A tourniquet was placed proximally on the extremity. Under real-time ultrasound guidance, an ?20 G 10cm BARD Powerglide Midline Non Tunnelled Catheter was advanced into the target vein. Dark blood was visualized in the flash chamber. The catheter was easily advanced into the vein. The catheter was evacuated of air and flushed with sterile saline. The catheter was secured in place with a tegaderm. The patient tolerated the procedure well and there were no complications. Estimated Blood Loss: 1mL Total Time for Procedure: 5min Images Stored CPT: 51889; 35506 Medical Decision Making Medical Decision Making MDM Narrative: Medical Decision Making: This is a 79-year-old female who was called back for abnormal culture and PICC line placement per documentation from the SNF. The patient is noncontributory to the history due to dementia but she is pleasant and has no complaints she is awake and alert. The patient is without fever nor tachycardia. Urinalysis from March 01 was reviewed showing moderate leukocyte esterase with 21-50 WBCs. Nitrite negative. At that time patient had leukocytosis of 13.4. During the ED course I attempted to contact infectious disease to get some recommendations based on the VRE growth and the recent outpatient antibiotic administration. The patient does not appear ill and is not febrile however recently had leukocytosis and leukocytes in the urine. Her history and examination were benign but not necessarily reassuring given the patient's underlying dementia. Given there was some delay in communication with infectious disease we placed a midline catheter in the right arm in anticipation of the discharged home for intravenous antibiotics. However eventually as described above we were able to contact infectious disease who recommended no midline or PICC and no antibiotics given their suspicion this was anal willard. I have communicated this and related this and my paperwork to this SNF staff any further workup or treatment can be deferred to the covering SNF physician I have given him the phone number of the infectious disease practice. 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 Per my discussion with infectious disease specialist no antibiotics are indicated any longer. We had initially placed a midline catheter but this was removed in the emergency department HISTORY OF PRESENTATION: Resistant UTI cultured on the EMERGENCY DEPARTMENT COURSE,TESTS, TREATMENTS: While in the ED today midline was placed. We were initially unable to get in touch with infectious disease but later we established contact with them. They reviewed the case presentation I sent them and the urine cultures and felt this was colonization of the urinary tract and that no antibiotics were indicated. DISCHARGE MEDICATIONS: [We have made no changes to your regular medication regimen] FOLLOW-UP: Call your primary or general physician soon as possible to discuss your symptoms, your ED visit and to discuss follow up plans The covering physician at your facility may wish to call Infectious Disease themselves to discuss this case Dr. Morales INSTRUCTIONS & RETURN PRECAUTIONS: If any symptoms change first call your primary physician, if it is after-hours your primary doctors office should have a provider senior data integration developer you can speak with. If the symptoms are severe or very concerning to you then call 911 or return to the ED. Reymundo Porras MD Emergency Physician [facility] Prescriptions: No Action furosemide 40 mg Tablet 40 mg PO DAILY atorvastatin 10 mg Tablet 10 mg PO BEDTIME ondansetron HCl 4 mg Tablet 4 mg PO Q6H PRN (Reason: NAUSEA/VOMITING) alendronate 70 mg Tablet 70 mg PO SA warfarin 2.5 mg tablet 2 mg PO DAILY@1800 melatonin 3 mg Tablet 3 mg PO BEDTIME calcium carbonate-vitamin D3 600 mg-5 mcg (200 unit) Tablet 1 tab PO BID aspirin 81 mg Tablet,Delayed Release (Dr/Ec) 81 mg PO DAILY lisinopril 10 mg Tablet 10 mg PO DAILY digoxin 125 mcg (0.125 mg) Tablet 125 mcg PO DAILY@1700 furosemide 20 mg Tablet 20 mg PO DAILY@1400 metoprolol succinate 25 mg Tablet Extended Release 24 Hr 25 mg PO DAILY Acidophilus Capsule 1,000 mmu cells PO DAILY bupropion HCl 150 mg Tablet Extended Release 24 Hr 150 mg PO QAM cefuroxime axetil 500 mg tablet 500 mg PO BID Qty: 28 0RF nitrofurantoin monohyd/m-cryst [Macrobid] 100 mg capsule 100 mg PO Q12H 7 Days Qty: 14 0RF Rx Instructions: must administer with a meal/food Referrals: Leandra Morales MD [Physician, Infectious Disease] Referral Note: Call to discuss continuation and/or change of intravenous antibiotics that we have ordered Interventions: ED Discharge Assessment Last Done: 03/06/25 17:53 Discharge Date/Time: 03/06/25 17:54 Print Language: Surinamese
[2025-03-06 14:06] VITALS: BP 148/82; PULSE 92; RESP 16; TEMP 36.3; O2SAT 98
--- OUTSIDE RECORDS SUMMARY | 2025-03-06 15:27 | XMS_ITS | Encounter Summary ---
Author Organization [employer] Address [address] [place] [address] 7[address] [place] [address] Care Team Providers Care Services Coordinator Name Role Phone Marline Latham CNP Primary Care Provider [phone] Encounter Details Date Type Department Care Team (Late st Contact Info) Description 05/09/2022 Orders Only [facility] MEDICAL [address] [place] [address] Marline Latham CNP [address] [place] [address] Social History Tobacco Use Types Packs/Day Years [...] PM EDT) Notes And Comments (NOTE) B [facility] Comment: This drug testing is [...] analytical performance characteristics have been determined by [employer]. It has not been cleared or approved by the FDA. This assay has been validated pursuant to the CLIA regulations and is used for clinical purposes. = = Healthcare Providers needing Interpretation assistance, please contact us at [phone] ( ) M-F, 8am to 10pm EST Test Performed by: [employer] [facility], [address] [place] [address]. [id number]. Rvda Master Certified Rv Technician: Marybeth Oliver MD. Testing performed or reported by [facility], a Service of [facility], [address] [place] [id number] William Dominguez MD, Community Music Therapist [facility]# [id number] 01/30/2023 1:06 PM EDT 01/30/2023 1:09 PM EDT Marline Latham [facility] BLOOD ORDERABLES Final Re sult [facility] [address] [place] [address] * (ABNORMAL) Drugs of Abuse 6 w/Reflex Confirmation, Urine (01/30/2023 1:06 PM EDT) Amphetamine Screen Urine NONE DETECTED (NDT) [facility] Comment: ASSAY CUTOFF 1000 NG/ML d-METHAMPHETAMINE This is an unconfirmed screening result. Unconfirmed results are to be used for medical purposes only. Interpretation should be confirmed with clinical symptoms or by an alternative method. Barbiturates Screen, Urine NONE DETECTED (NDT) [facility] Comment: ASSAY CUTOFF 200 NG/ML SECOBARBITAL This is an unconfirmed screening result. Unconfirmed results are to be used for medical purposes only. Interpretation should be confirmed with clinical symptoms or by an alternative method. Benzodiazepines Screen Urine NONE DETECTED (NDT) [facility] Comment: ASSAY CUTOFF 300 NG/ML NORDIAZEPAM This is an unconfirmed screening result. Unconfirmed results are to be used for medical purposes only. Interpretation should be confirmed with clinical symptoms or by an alternative method. LORAZEPAM AND METABOLITE ARE NOT DETECTED BY THIS METHOD Cocaine Screen Urine NONE DETECTED (NDT) [facility] Comment: ASSAY CUTOFF 300 NG/ML BENZOYLECOGNINE This is an unconfirmed screening result. Unconfirmed results are to be used for medical purposes only. Interpretation should be confirmed with clinical symptoms or by an alternative method. Methadone Screen, Urine NONE DETECTED (NDT) [facility] Comment:ASSAY CUTOFF 300 NG/ ML d,i-DOFZUOAPW-XED CODEINE, URINE NEGATIVE [facility] Comment: Reference range: <50 Unit: ng/mL HYDROCODONE, URINE NEGATIVE B [facility] Comment: Reference range: <50 Unit: ng/mL HYDROMORPHONE, URINE NEGATIVE [facility] Comment: Reference range: <50 Unit: ng/mL MORPHINE, URINE NEGATIVE [facility] Comment: Reference range: <50 Unit: ng/mL NORHYDROCODONE, URINE NEGATIVE [facility] Comment: Reference range: <50 Unit: ng/mL Opiates Comments See LDT Notes [facility] NOROXYCODONE, URINE 2,820(H) [facility] Comment: Reference range: <50 Unit: ng/mL Oxycodone Urine Screen 2,520(H) [facility] Comment: Reference range: <50 Unit: ng/mL OXYMORPHONE, URINE NEGATIVE B [facility] Comment: Reference range: <50 Unit: ng/mL Oxycodone Comments See Oxycodone Notes, LDT Notes [facility] Comment: Test Performed by: [employer], [address] [place] [address]. [id number]. Rvda Master Certified Rv Technician: Marybeth Oliver MD. Testing performed or reported by [facility], a Service of [facility], [address] [place] [address] William Dominguez MD, Community Music Therapist [facility]# [id number] 01/30/2023 1:06 PM EDT 01/30/2023 1:09 PM EDT us Marline Latham GRINDING WHEEL OPERATOR LAB URINE ORDERABLES Final Re sult [facility] [address] [place] [address] * US Guided Needle Placement [...] radiology department with any questions or concerns ([phone]). IMPRESSION: Ultrasound-guided FNA x3 of a nodule [...] is to follow-up with Dr. Marline Latham INSURANCE RATER for test results and further management. WSN: [id number] Ordering Physician: Marline Latham Dictated By: Khoa [...] the radiology department with any questionsor concerns ([phone]). IMPRESSION: Ultrasound-guided FNA x3 of a nodule [...] is to follow-up with Dr. Marline Latham INSURANCE RATER for test resultsand further management. WSN: [id number] Ordering Physician: Marline Latham Dictated By: Khoa Diaz MD Dictated Date/Time: 06/01/22 4:00 pm Reviewed By: Khoa Diaz MD Signed By: Khoa Diaz MD Signed Date/Time: 06/01/22 4:00 pm Transcribed By: WILLIAM Transcribed Date/Time: 06/01/22 3:51 pm us Marline Latham GRINDING WHEEL OPERATOR IMG US PROCEDURES Final Resul t * [facility] (06/01/2022 8:46 AM EST) Result [facility] Comment: Patient Name: CARMEN GRIFFIN [...] signed out by: YAMILET ANDRES M.D. / [facility] Clinical History: Part 1 Multiple thyroid nodules, dominant right lobe nodule. Patient is on coumadin. Part 2 Multiple thyroid nodules, dominant right lobe nodule. Patient is on coumadin. Gross Description: Part 1 Specimen received in CytoLyt. (43cc) [place], hazy fluid 1 ThinPrep cellular enhancement technique Part 2 Specimen received in CytoLyt. (45cc) Light pink, clear fluid 1 ThinPrep cellular enhancement technique Phone #: [phone], On-Call Pathologist: [id number] Testing performed or reported by [facility], a Service of [facility], [address] [place] [address] Fadi Childress MD, Community Music Therapist [facility]# [id number] 06/01/2022 8:46 AM EST 06/02/2022 8:46 AM EST us Marline Latham CNP LAB CYTOLOGY ORDERABLES Final Result [facility] [address] [place] [id number] documented in this encounter Visit Diagnoses Not on filedocumented in this encounter Care Teams Services Coordinator Relationship Specialty Start Date End Date Marline Latham [facility] [address] [facility] [address] PCP - General Family Medicine 05/24/22 documented as of this encounter
--- OUTSIDE RECORDS SUMMARY | 2025-03-06 15:27 | XMS_ITS | Encounter Summary ---
Author Organization [employer] Address [address] [facility] [address]t [place] [address] Care Team Providers Care Media Coordinator Name Role Phone Marline Latham CNP Primary Care Provider [phone] Encounter Details Date Type Department Care Team (Late st Contact Info) Description 02/22/2024 Orders Only [place] [facility] [address] [place] [address] Marline Latham CNP [address] [place] [address] Social History Tobacco Use Types Packs/Day Years [...] on filedocumented in this encounter Care Teams Media Coordinator Relationship Specialty Start Date End Date Marline Latham CNP [address] [place] [address] PCP - General Family Medicine 05/24/22 documented as of this encounter
--- OUTSIDE RECORDS SUMMARY | 2025-03-06 15:27 | XMS_ITS | Encounter Summary ---
Author Organization [employer] Address [address] [facility] [address]t [place] [address] Care Team Providers Care Sawdust Drier Name Role Phone Marline Latham CNP Primary Care Provider [phone] Encounter Details Date Type Department Care Team (Late st Contact Info) Description 04/18/2024 Orders Only [place] [facility] [address] [place] [address] Marline Latham CNP [address] [place] [address] Social History Tobacco Use Types Packs/Day Years [...] Modality Body, Pelvis, Abdomen Computed T omography Marlnie Latham HUMAN RESOURCE OFFICER IMG CT PROCEDURES Final Resul t * XR Chest 2 Views (04/15/2024 8:38 AM EST) Anatomical Region Laterality Modality Chest Radiographic Leonarda ging Marline Latham CNP IMG XR PROCEDURES Final Resul t documented in this encounter Visit Diagnoses Not on filedocumented in this encounter Care Teams Sawdust Drier Relationship Specialty Start Date End Date Marline Latham CNP [address] [place] [address] PCP - General Family Medicine 05/24/22 documented as of this encounter
--- OUTSIDE RECORDS SUMMARY | 2025-03-06 15:27 | XMS_ITS | Clinical Summary ---
Author Organization [employer] Address [address] [facility] [address]t [place] [address] Care Team Providers Care Sweet Goods Machine Operator Name Role Phone Marline Latham XIOMY Primary Care Provider [phone] Allergies Active Allergy Reactions Criticality Noted Date [...] 40 MG tabletIndications:C hronic diastolic heart failure (HCC) Take 1 tablet (40 mg) by mouth [...] attack Paternal Grandmother paterna l grandmother at [place] young pt Cataracts Neg Hx Macular degeneration [...] is your housing situation today? I have kobedaphne cantu 12/04/[address] you [...] AM EDT) Cholesterol, Total 159 (<200) MG/DL [facility] Triglyceride (mg/dL) in Serum/Plasma 158(H) (<150) MG/DL [facility] HDL Cholesterol 35(L) (>39) MG/DL [facility] LDL Cholesterol, Calculated 92 (0-130) MG/DL [facility] Non HDL Chol. (LDL+VLDL) 124 (<160) MG/DL [facility] Comment: Testing performed or reported by [facility], a Service of [facility], [address] [place] [address] William Dominguez MD, Sharepoint Web Developer [facility]# [id number] Blood Venous blood specimen / Unknown 01/30/2023 11:57 AM EDT 01/30/2023 11:58 AM EDT us Marline Latham [facility] BLOOD ORDERABLES Final Re sult [facility] [address] [address] from Last 3 Months or Most Recently Relevant to Health Maintenance Insurance [place] [id number] Care Teams Sweet Goods Machine Operator Relationship Specialty Start Date End Date Marline Latham CNP [address] [place] [address] PCP - General Family Medicine 05/24/22
--- OUTSIDE RECORDS SUMMARY | 2025-03-06 15:27 | XMS_ITS | Encounter Summary ---
Author Organization [employer] Address [address] [facility] 7t [place] [address] Care Team Providers Care Human Resource Statistician Name Role Phone Marline Latham CNP Primary Care Provider [phone] Encounter Details Date Type Department Care Team (Late st Contact Info) Description 04/25/2024 Orders Only [place] [facility] [address] [place] [address] Marline Latham CNP [address] [place] [address] Social History Tobacco Use Types Packs/Day Years [...] on filedocumented in this encounter Care Teams Human Resource Statistician Relationship Specialty Start Date End Date Marline Latham CNP [address] [place] [address] PCP - General Family Medicine 05/24/22 documented as of this encounter
--- OUTSIDE RECORDS SUMMARY | 2025-03-06 15:28 | XMS_ITS | Clinical Summary ---
Author Organization [facility] Address [address] [place] [phone] Phone Care Team Providers Care Pest Control Applicator Name Role Phone Isabell Bliss NP Primary [...] EDT) SODIUM 144 133 - 146 mmol/L [facility] CHLORIDE 107 96 - 108 mmol/L [facility] POTASSIUM 4.5 3.3 - 5.1 mmol/L [facility] CO2 25 21 - 35 mmol/L [facility] BUN 16 6 - 19 mg/dL [facility] CREATININE 0.60 0.5 - 1.5 mg/dL [facility] GLUCOSE 93 70 - 99 mg/dL [facility] CALCIUM 10.2 8.4 - 10.3 mg/dL [facility] EGFR >60 mL/min/1.7 3m2 [facility] Comment:Abnormal if <60. If patient is -[place], multiply the result by 1.21. ANION GAP 17 10 - 20 mmol/L [facility] Blood 04/08/2017 3:18 PM EDT 04/08/2017 3:25 PM EDT us Radames Medeiros MD LAB BLOOD ORDERABLES Fin al Result [facility] [address], [place] [id number] from Last 3 Months or Most Recently Relevant to Health Maintenance [place] [address] [address] [address] MEDICARE SUPPLEMENT MEDICARE PART A & B Member Subscriber Plan / Payer (Ef fective 2013-Present) Name:Fei Joshua Member ID:[id number] Relation to Subscriber:Self Name:Fei Joshua Subscriber ID:[id number] Payer ID:[id number] Group ID:Not on file Type:Medicare Address: [employer] [facility] [address] [place] [phone] [facility] MEDICARE SUPPLEMENT MEDICARE PART A & B MEDICARE PART A & B MEDICARE PART A & [place] [address] [place] [address] MEDICARE SUPPLEMENT MEDICARE PART A & [place] [address] [address] MEDICARE SUPPLEMENT MEDICARE PART A & B MEDICARE SUPPLEMENT MEDICARE PART A & B MEDICARE SUPPLEMENT MEDICARE PART A & [place] [address] [place] [address] MEDICARE SUPPLEMENT MEDICARE PART A & B Care Teams Pest Control Applicator Relationship Specialty Start Date End Date [facility] [place] [address] PCP - General Family Medicine 04/08/17 Additional Source Comments The information contained in this document represents components of the legal health record. It is not the complete legal health record.[facility]
[2025-03-06 17:53] VITALS: BP 148/82; PULSE 92; RESP 16; TEMP 36.3; O2SAT 98
== END 2025-03-06 17:54 | disposition home or self-care (01) ==
PROVIDERS: Emergency Provider Emergency Medicine
DX: N39.0 Urinary tract infection, site not specified (principal); I48.91 Unspecified atrial fibrillation; F03.90 Unspecified dementia, unspecified severity, without behavioral disturbance, psychotic disturbance, mood disturbance, and anxiety; J44.9 Chronic obstructive pulmonary disease, unspecified; Z79.899 Other long term (current) drug therapy; Z87.440 Personal history of urinary (tract) infections
CPT/HCPCS: 93005; 99283; 99284

== ENCOUNTER → 2025-03-06 13:54 | Outpatient (BNV) | payer MEDICARE, SELFPAY | PROVIDERS: Emergency Provider Emergency Medicine; Visit Provider Internal Medicine | DX: I48.91 Unspecified atrial fibrillation (principal) | CPT/HCPCS: 93010 ==